=== PATIENT | female | born 1955 | race African-American/Black ===

== ENCOUNTER 2017-03-11 23:34 | Emergency (ER) | payer MEDICARE ==
[~2017-03-11] VITALS: Ht 157.5 cm; Wt 65.8 kg
[~2017-03-11 23:34] MED LIST: ALBUTEROL SULF8.5 GM INH; AMBIEN5 M1 PO; AMBIEN5 MG ORAL; AMIODARONE HCL100 MG ORAL; ASPIR-LOW81 MG PO; AZITHROMYCIN250 MG ORAL; CLINORIL PO; COLACE100 MG PO; COMBIVENT RESPIM4 GM IH; CORDARONE200 MG PO; LISINOPRIL-HCT1 EACH PO; LOSARTAN-HCTZ1 EAC1 ORAL; NITROGLYCERIN0.4 MG SL; NORCO 5/3251 TAB ORAL; PRAVASTATIN SOD10 M1 ORAL; PREVACID15 M2 ORAL; SOMA250 MG PO; SOMA350 MG PO; VICODIN 5-5001 EACH PO
[2017-03-12 00:21] VITALS: BP 120/64
[2017-03-12] MEDS ORDERED: IBUPROFEN600 MG ORAL (00:46)
[2017-03-12] MEDS ORDERED: PROMETHAZINE-C118 M1 ORAL (00:47)
[2017-03-12] MEDS ORDERED: AZITHROMYCIN250 MG ORAL (00:47)
--- NOTE | 2017-03-12 00:47 | Emergency Room Report ---
History of Present Illness General Chief Complaint: Flu Like Symptoms Source: Patient Present Illness [facility] This is a 61-year-old female with a history of A. fib. She presents with 2 days history of fever chills, cough congestion, ear pain, sore throat, chest pain. Cough is productive of yellow sputum. Pain is 8/10. Worse with swallowing. Denies any other complaint. Allergies: Coded Allergies: CEPHALEXIN (Verified Allergy, Unknown, 11/27/11) LEVOFLOXACIN (Verified Allergy, Unknown, 02/09/09) SULFA (SULFONAMIDE ANTIBIOTICS) (Verified Allergy, Unknown, 02/09/09) Patient History Past Medical History: see triage record, old chart reviewed, HTN, CAD, AFib Past Surgical History: other Pertinent Family History: none Social History: Denies: smoking Last Menstrual Period: NONE Now: No Immunizations: other Reviewed Nursing Documentation: PMH: Agreed, PSxH: Agreed Nursing Documentation-PMH Hx Cardiac Problems: Yes - AFIB Hx Hypertension: Yes Hx Diabetes: Yes Hx Cancer: No Hx Gastrointestinal Problems: No Hx Neurological Problems: No Review of Systems Eye: Reports: nose congestion, Denies: blurred vision, eye pain ENT: Reports: ear pain, nose congestion, throat swelling Respiratory: Reports: shortness of breath, Denies: cough Cardiovascular: Reports: chest pain, Denies: palpitations Gastrointestinal: Denies: abdominal pain, diarrhea, nausea, vomiting Musculoskeletal: Denies: back pain, joint pain Skin: Denies: rash Neurological: Denies: headache, numbness Endocrine: Denies: increased thirst, increased urine Hematologic/Lymphatic: Denies: easy bruising All Other Systems: negative except mentioned in HPI Physical Exam Vital Signs Date Time Temp Pulse Resp B/P Pulse Ox O2 Delivery O2 Flow Rate FiO2 03/12/17 00:03 98.4 78 20 120/64 99 Room Air vitals normal Sp02 EP Interpretation: reviewed, normal General Appearance: well appearing, no apparent distress, alert Head: normocephalic, atraumatic Eyes: bilateral eye EOMI, bilateral eye PERRL ENT: hearing grossly normal, pharyngeal erythema Neck: full range of motion, supple, no meningismus Respiratory: chest non-tender, lungs clear, normal breath sounds Cardiovascular #1: regular rate, rhythm, no murmur Gastrointestinal: normal bowel sounds, non tender, no mass, no organomegaly, no bruit, non-distended Musculoskeletal: back normal, gait/station normal, normal range of motion Neurologic: alert, oriented x3, responsive Psychiatric: mood/affect normal Skin: warm/dry Medical Decision Making Diagnostic Impression: Primary Impression: Influenza-like symptoms Additional Impression: Pharyngitis, acute Qualified Codes: J02.9 - Acute pharyngitis, unspecified ER Course Patient presents with influenza-like illness. Most likely viral. No evidence of pneumonia, meningitis, sepsis. Chest pain is atypical and related to her infectious cause. We'll discharge him. Last Vital Signs Date Time Temp Pulse Resp B/P Pulse Ox O2 Delivery O2 Flow Rate FiO2 03/12/17 00:21 78 20 Room Air 03/12/17 00:21 98.4 120/64 99 Status: improved Disposition: HOME, SELF-CARE Condition: Stable Scripts Codeine/Promethazine Hcl* (PROMETHAZINE-CODEINE SYRUP*) 118 Ml Syrup 5 ML ORAL Q6H Y for For Cough, #118 ML 0 Refills Prov: JOSE COMBS M.D. 03/12/17 Azithromycin* (ZITHROMAX*) 250 Mg Tablet 250 MG ORAL DAILY, #6 TAB 0 Refills Take two tablets by mouth today, then take one tablet by mouth daily for four days Prov: JOSE COMBS M.D. 03/12/17 Ibuprofen* (MOTRIN*) 600 Mg Tablet 600 MG ORAL THREE TIMES A DAY, #30 TAB 0 Refills Prov: JOSE COMBS M.D. 03/12/17 Additional Instructions: Followup with your DrMaria Del Rosario in 7 days. Return if symptom worsen. JOSE COMBS M.D. March 12, 2017 00:47
[2017-03-12 00:56] VITALS: BP 7/9
== END 2017-03-12 01:45 | disposition home or self-care (01) ==
LOC: EMR 03-12 01:34
DX: J11.1 Influenza due to unidentified influenza virus with other respiratory manifestations (principal); J02.9 Acute pharyngitis, unspecified; R07.9 Chest pain, unspecified; Z88.2 Allergy status to sulfonamides; Z88.8 Allergy status to other drugs, medicaments and biological substances; I48.91 Unspecified atrial fibrillation; I10 Essential (primary) hypertension; E11.9 Type 2 diabetes mellitus without complications; I25.10 Atherosclerotic heart disease of native coronary artery without angina pectoris
CPT/HCPCS: 99284

== ENCOUNTER 2019-06-22 13:47 | Inpatient (IN) | payer MEDICARE, OTHER ==
[~2019-06-22] VITALS: Ht 154.9 cm; Wt 73.9 kg
[~2019-06-22 13:47] MED LIST changes: +GLUCOSAMINE1000 M1 PO; +IBUPROFEN600 MG ORAL; +METFORMIN HCL500 M1 ORAL; +PROMETHAZINE-C118 M1 ORAL; +TYLENOL325 MG ORAL
[2019-06-22 14:00] VITALS: BP 134/73
--- NOTE | 2019-06-22 14:10 | Emergency Room Report ---
History of Present Illness General Chief Complaint: Upper Respiratory Illness Source: Patient, Medical Record Present Illness HPI The patient presents with 3 days of worsening dyspnea, chest pain and cough. She is felt feverish at home but not documented. She has dyspnea on minimal exertion with wheezes. She has been using an inhaler but has not been helping. The chest pain is bandlike across her chest. She rates this 6/10 and worse when she is coughing. She has been producing yellow phlegm without any blood. She denies any chills. She is lost her appetite. Denies any nausea, vomiting, diarrhea or dysuria. In the past she has been treated for superficial phlebitis but this is resolved. She has not tried nitroglycerin for the chest pain. She does not feel it is her heart. No sore throat, palpitations, abdominal pain, joint pain, rashes, depression, anxiety, visual changes, headache. Allergies: Coded Allergies: CEPHALEXIN (Verified Allergy, Unknown, 11/27/11) LEVOFLOXACIN (Verified Allergy, Unknown, 02/09/09) SULFA (SULFONAMIDE ANTIBIOTICS) (Verified Allergy, Unknown, 02/09/09) Patient History Past Medical History: see triage record, old chart reviewed Social History: Denies: smoking - Former Social History Narrative From home Reviewed Nursing Documentation: PMH: Agreed; PSxH: Agreed Nursing Documentation-PMH Past Medical History: No History, Except For Hx Cardiac Problems: Yes - AFIB Hx Hypertension: Yes Hx Diabetes: Yes Hx Cancer: No Hx Gastrointestinal Problems: No Hx Neurological Problems: No Review of Systems All Other Systems: negative except mentioned in HPI Physical Exam Vital Signs Date Time Temp Pulse Resp B/P (MAP) Pulse Ox O2 Delivery O2 Flow Rate FiO2 06/22/19 13:52 98.4 99 18 134/73 (93) 91 Room Air Sp02 EP Interpretation: reviewed, abnormal - Interpreted as low by me General Appearance: GCS 15, non-toxic, mild distress Head: normocephalic Eyes: bilateral eye normal inspection, bilateral eye PERRL, bilateral eye EOMI ENT: normal pharynx, moist mucus membranes Neck: supple Respiratory: respiratory distress - Minimal, wheezing, expiration, other - No rales Cardiovascular #1: regular rate, rhythm, no edema, no JVD Cardiovascular #2: 2+ radial (R) Gastrointestinal: non tender, no guarding, distended, decreased bowel sounds, overweight Genitourinary: no CVA tenderness Musculoskeletal: gait/station normal - But easily out of breath, normal range of motion, no calf tenderness Neurologic: alert, oriented x3, grossly normal Psychiatric: mood/affect normal Skin: no rash Medical Decision Making Diagnostic Impression: Primary Impression: Hypoxia Additional Impressions: Bronchospasm Chest pain Qualified Codes: R07.1 - Chest pain on breathing ER Course Patient presents with 3 days of dyspnea with wheezing and hypoxia. Differential includes pneumonia, acute myocardial infarction, COPD exacerbation , pulmonary embolus, congestive heart failure amongst others. Based on her exam there is more bronchospasm than evidence of fluid overload. Patient will be evaluated with EKG, chest x-ray and labs including blood cultures and lactate. She will be treated with IV hydration, Solu-Medrol, breathing treatments, Zofran and a small dose of morphine. Based on the hypoxia and her respiratory compromise the patient will be admitted to a telemetry bed. We need to exclude myocardial infarction. Clinically the patient does not have a pulmonary embolus. EKG with sinus rhythm rate [address]-T wave changes with left atrial enlargement. CXR COPD. Normal WBC without eosinophilia. Required second dose Albuterol. Some improved but needs hospitalization for treatment. Morphine repeated. Improved. Discussed with Dr. Espinoza on for Dr. Cooper. Laboratory Tests Test 06/22/19 14:15 06/22/19 15:10 White Blood Count 8.1 K/UL (4.8-10.8) Red Blood Count 5.38 M/UL (4.20-5.40) Hemoglobin 15.0 G/DL (12.0-16.0) Hematocrit 46.6 % (37.0-47.0) Mean Corpuscular Volume 87 FL (80-99) Mean Corpuscular Hemoglobin 27.9 PG (27.0-31.0) Mean Corpuscular Hemoglobin Concent 32.1 G/DL (32.0-36.0) Red Cell Distribution Width 12.6 % (11.6-14.8) Platelet Count 203 K/UL (150-450) Mean Platelet Volume 7.5 FL (6.5-10.1) Neutrophils (%) (Auto) 76.2 % (45.0-75.0) H Lymphocytes (%) (Auto) 14.8 % (20.0-45.0) L Monocytes (%) (Auto) 7.6 % (1.0-10.0) Eosinophils (%) (Auto) 0.7 % (0.0-3.0) Basophils (%) (Auto) 0.7 % (0.0-2.0) Prothrombin Time 10.7 SEC (9.30-11.50) Prothrombin Time INR 1.0 (0.9-1.1) PTT 28 SEC (23-33) Sodium Level 139 MMOL/L (136-145) Potassium Level 4.2 MMOL/L (3.5-5.1) Chloride Level 104 MMOL/L (98-107) Carbon Dioxide Level 27 MMOL/L (21-32) Anion Gap 8 mmol/L (5-15) Blood Urea Nitrogen 15 mg/dL (7-18) Creatinine 0.8 MG/DL (0.55-1.30) Estimate Glomerular Filtration Rate > 60 mL/min (>60) Glucose Level 183 MG/DL (74-106) H Lactic Acid Level 1.50 mmol/L (0.4-2.0) Calcium Level 9.2 MG/DL (8.5-10.1) Total Bilirubin 0.3 MG/DL (0.2-1.0) Aspartate Amino Transferase (AST) 19 U/L (15-37) Alanine Aminotransferase (ALT) 19 U/L (12-78) Alkaline Phosphatase 89 U/L (46-116) Total Creatine Kinase 213 U/L (26-308) Troponin I 0.000 ng/mL (0.000-0.056) Pro-B-Type Natriuretic Peptide 33 pg/mL (0-125) Total Protein 7.2 G/DL (6.4-8.2) Albumin 3.6 G/DL (3.4-5.0) Globulin 3.6 g/dL Albumin/Globulin Ratio 1.0 (1.0-2.7) Lipase 154 U/L (73-393) Urine Color Yellow Urine Appearance Clear Urine pH 6.5 (4.5-8.0) Urine Specific [place] 1.015 (1.005-1.035) Urine Protein 1+ (NEGATIVE) H Urine Glucose (UA) Negative (NEGATIVE) Urine Ketones 1+ (NEGATIVE) H Urine Blood Negative (NEGATIVE) Urine Nitrite Negative (NEGATIVE) Urine Bilirubin Negative (NEGATIVE) Urine Urobilinogen 1 MG/DL (0.0-1.0) H Urine Leukocyte Esterase Negative (NEGATIVE) Urine RBC 0 /HPF (0 - 2) Urine WBC 0-2 /HPF (0 - 2) Urine Squamous Epithelial Cells Many /LPF (NONE/OCC) H Urine Amorphous Sediment Moderate /LPF (NONE) H Urine Bacteria Few /HPF (NONE) Urine Mucus Few /LPF (NONE/OCC) H EKG Diagnostic Results Rate: normal Rhythm: NSR ST Segments: no acute changes Rhythm Strip Diag. Results EP Interpretation: yes Rhythm: NSR, no PVC's, no ectopy Chest X-Ray Diagnostic Results Chest X-Ray Diagnostic Results : Chest X-Ray Ordered: Yes # of Views/Limited/Complete: 1 View Indication: Other EP Interpretation: Yes Interpretation: no consolidation, no effusion, no pneumothorax, other - COPD no infiltrate Impression: Other Electronically Signed by: Electronically signed by Kian Kumari MD Last Vital Signs Date Time Temp Pulse Resp B/P (MAP) Pulse Ox O2 Delivery O2 Flow Rate FiO2 06/22/19 20:00 97.4 89 18 151/71 (97) 98 06/22/19 19:44 Nasal Cannula 2.0 28 Status: improved Disposition: ADMITTED INPATIENT Condition: Serious Kian Kumari MD Jun 22, 2019 14:10
[2019-06-22] MEDS ORDERED: Morphine Sulfate 2mg/ml Inj(IV/IM USE ONLY) IVP ONE (14:15)
[2019-06-22] MEDS ORDERED: Ipratropium 0.02% Inh Soln 2.5ml UD HHN ONE (14:15)
[2019-06-22] MEDS ORDERED: Albuterol ud Inhalation HHN ONE ×2 (14:15→15:15)
[2019-06-22] MEDS ORDERED: Solu-MEDROL 125mg Inj IVP ONE (14:15)
[2019-06-22 14:37] LABS: BASOPHILS % (AUTO) 0.7 % (0.0-2.0); EOSINOPHILS % (AUTO) 0.7 % (0.0-3.0); HEMATOCRIT 46.6 % (37.0-47.0); LYMPHOCYTES % (AUTO) 14.8 % (20.0-45.0); MEAN CORPUSCULAR VOLUME 87 FL (80-99); MONOCYTES % (AUTO) 7.6 % (1.0-10.0); NEUTROPHILS % (AUTO) 76.2 % (45.0-75.0); PLATELET COUNT 203 K/UL (150-450); RED BLOOD COUNT 5.38 M/UL (4.20-5.40); RED CELL DISTRIBUTION WIDTH 12.6 % (11.6-14.8); WHITE BLOOD COUNT 8.1 K/UL (4.8-10.8)
[2019-06-22 14:45] LABS: ANION GAP 8 mmol/L (5-15); BLOOD UREA NITROGEN 15 mg/dL (7-18); CALCIUM 9.2 MG/DL (8.5-10.1); CARBON DIOXIDE 27 MMOL/L (21-32); CHLORIDE 104 MMOL/L (98-107); CREATININE 0.8 MG/DL (0.55-1.30); POTASSIUM 4.2 MMOL/L (3.5-5.1); SODIUM 139 MMOL/L (136-145)
[2019-06-22 14:56] LABS: ALANINE AMINOTRANSFERASE 19 U/L (12-78); ALBUMIN 3.6 G/DL (3.4-5.0); ALKALINE PHOSPHATASE 89 U/L (46-116); ASPARTATE AMINO TRANSFERASE 19 U/L (15-37); BILIRUBIN,TOTAL 0.3 MG/DL (0.2-1.0); CREATINE KINASE 213 U/L (26-308)
--- NOTE | 2019-06-22 14:58 | Diagnostic Imaging Report ---
Indication: Cough Comparison: 10/19/2014 A single view chest radiograph was obtained. Findings: No definite infiltrate or pulmonary vascular congestion identified. The heart is enlarged. The aorta is mildly enlarged consistent with atherosclerotic vascular disease. The bones are osteopenic. Impression: No acute disease
[2019-06-22 15:39] LABS: APPEARANCE,URINE CLEAR; BILIRUBIN, URINE NEGATIVE (NEGATIVE); GLUCOSE, URINE (UA) NEGATIVE (NEGATIVE); KETONES,URINE 1+ (NEGATIVE); LEUKOCYTE ESTERASE ,URINE NEGATIVE (NEGATIVE); NITRITE,URINE NEGATIVE (NEGATIVE); PH,URINE 6.5 (4.5-8.0); PROTEIN,URINE 1+ (NEGATIVE); UROBILINOGEN,URINE 1 MG/DL (0.0-1.0)
[2019-06-22 15:41] LABS: COLOR,URINE YELLOW
[2019-06-22] MEDS ORDERED: LORazepam Inj 2mg/ml 1ml IV PRN (16:00)
[2019-06-22] MEDS ORDERED: Zolpidem 5mg tab ORAL PRN (16:00)
[2019-06-22] MEDS ORDERED: Morphine Sulfate 4mg/ml Inj (IV USE ONLY) IVP PRN (16:00)
[2019-06-22] MEDS ORDERED: Nitroglycerin Subl 0.4mg tab SL PRN (16:00)
[2019-06-22] MEDS ORDERED: Morphine Sulfate 2mg/ml Inj(IV/IM USE ONLY) IVP PRN (16:00)
[2019-06-22] MEDS ORDERED: Morphine Sulfate 4mg/ml Inj (IV USE ONLY) IVP ONE (16:15)
[2019-06-22 16:22] VITALS: BP 119/52
[2019-06-22] MEDS ORDERED: Albuterol ud Inhalation HHN PRN (16:45)
--- NOTE | 2019-06-22 16:56 | History and Physical ---
History of Present Illness General Date patient seen: Jun 22, 2019 Time patient seen: 15:30 Reason for Hospitalization: Upper Respiratory Illness Present Illness HPI 64 y/o F with h/o borderline DM on Metformin, prior arrhythmias on Amiodarone, insomnia and chronic smoker who comes to the ED for evaluation of shortness of breath and bronchospasm. She reports having cough for the past 3 days with sputum production ( Yellow ), denies fever or chills, no hemotptysis. Denies sick contacts and she smokes intermittently and not every day. Reports changing PCP to Dr. Mark and seeing him for first evaluation approximately 6 weeks ago. She uses ambien 10 mg for chronic insomnia. 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 Crawford who started the Amiodarone about 2 years ago. In the ED, she was given Albuterol, Solumedrol and oxygen. CXR EKG labs and course reviewed. Allergies: Coded Allergies: CEPHALEXIN (Verified Allergy, Unknown, 11/27/11) LEVOFLOXACIN (Verified Allergy, Unknown, 02/09/09) SULFA (SULFONAMIDE ANTIBIOTICS) (Verified Allergy, Unknown, 02/09/09) Medication History Scheduled Amiodarone Hcl* (Cordarone*), 200 MG PO Q12H, (Reported) Aspirin* (Aspir-Low*), 81 MG PO DAILY, (Reported) Lansoprazole* (Prevacid*), 15 MG ORAL DAILY, (Reported) Losartan/Hydrochlorothiazide (Losartan-Hctz 100-25 Mg Tab), 1 TAB ORAL DAILY, ( Reported) Metformin Hcl* (Metformin Hcl*), 500 MG ORAL TWICE A DAY, (Reported) Pravastatin Sod (Pravastatin Sod), 10 MG ORAL BEDTIME, (Reported) Scheduled PRN Acetaminophen (Tylenol), 650 MG ORAL Q6H PRN for Prn Pain/Headache/Temp > 101 Nitroglycerin (Nitroglycerin), 0.4 MG SL Q4HR PRN for For Pain Zolpidem Tartrate* (Ambien*), 5 MG ORAL BEDTIME PRN for Insomnia, (Reported) Miscellaneous Medications Glucosamine Sulfate 2KCL (Glucosamine), 1,000 MG PO, (Reported) Patient History Healthcare decision maker Resuscitation status Advanced Directive on File Review of Systems Constitutional: Reports: see HPI Respiratory: Reports: cough, shortness of breath, wheezing, sputum Cardiovascular: Reports: no symptoms Gastrointestinal: Reports: no symptoms Genitourinary: Reports: no symptoms All Other Systems: negative except mentioned in HPI Physical Exam General Appearance: WD/WN Lines, tubes and drains: peripheral HEENT: normocephalic, atraumatic Neck: non-tender, normal alignment Respiratory/Chest: chest wall non-tender Cardiovascular/Chest: normal rate Abdomen: non tender 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 Last 24 Hour Vital Signs Date Time Temp Pulse Resp B/P (MAP) Pulse Ox O2 Delivery O2 Flow Rate FiO2 06/22/19 16:22 98 21 119/52 95 Room Air 06/22/19 15:54 82 12 99 Nasal Cannula 2.0 28 91 22 95 06/22/19 14:56 98.4 06/22/19 14:00 98.4 99 18 134/73 98 Room Air 06/22/19 14:00 99 28 93 Nasal Cannula 2.0 28 97 19 96 06/22/19 14:00 99 18 Room Air 06/22/19 13:52 98.4 99 18 134/73 (93) 98 Room Air Laboratory Tests Test 06/22/19 14:15 06/22/19 15:10 White Blood Count 8.1 K/UL (4.8-10.8) Red Blood Count 5.38 M/UL (4.20-5.40) Hemoglobin 15.0 G/DL (12.0-16.0) Hematocrit 46.6 % (37.0-47.0) Mean Corpuscular Volume 87 FL (80-99) Mean Corpuscular Hemoglobin 27.9 PG (27.0-31.0) Mean Corpuscular Hemoglobin Concent 32.1 G/DL (32.0-36.0) Red Cell Distribution Width 12.6 % (11.6-14.8) Platelet Count 203 K/UL (150-450) Mean Platelet Volume 7.5 FL (6.5-10.1) Neutrophils (%) (Auto) 76.2 % (45.0-75.0) H Lymphocytes (%) (Auto) 14.8 % (20.0-45.0) L Monocytes (%) (Auto) 7.6 % (1.0-10.0) Eosinophils (%) (Auto) 0.7 % (0.0-3.0) Basophils (%) (Auto) 0.7 % (0.0-2.0) Prothrombin Time 10.7 SEC (9.30-11.50) Prothromb Time International Ratio 1.0 (0.9-1.1) Activated Partial Thromboplast Time 28 SEC (23-33) Sodium Level 139 MMOL/L (136-145) Potassium Level 4.2 MMOL/L (3.5-5.1) Chloride Level 104 MMOL/L (98-107) Carbon Dioxide Level 27 MMOL/L (21-32) Anion Gap 8 mmol/L (5-15) Blood Urea Nitrogen 15 mg/dL (7-18) Creatinine 0.8 MG/DL (0.55-1.30) Estimat Glomerular Filtration Rate > 60 mL/min (>60) Glucose Level 183 MG/DL (74-106) H Lactic Acid Level 1.50 mmol/L (0.4-2.0) Calcium Level 9.2 MG/DL (8.5-10.1) Total Bilirubin 0.3 MG/DL (0.2-1.0) Aspartate Amino Transf (AST/SGOT) 19 U/L (15-37) Alanine Aminotransferase (ALT/SGPT) 19 U/L (12-78) Alkaline Phosphatase 89 U/L (46-116) Total Creatine Kinase 213 U/L (26-308) Troponin I 0.000 ng/mL (0.000-0.056) Pro-B-Type Natriuretic Peptide 33 pg/mL (0-125) Total Protein 7.2 G/DL (6.4-8.2) Albumin 3.6 G/DL (3.4-5.0) Globulin 3.6 g/dL Albumin/Globulin Ratio 1.0 (1.0-2.7) Lipase 154 U/L (73-393) Urine Color Yellow Urine Appearance Clear Urine pH 6.5 (4.5-8.0) Urine Specific [place] 1.015 (1.005-1.035) Urine Protein 1+ (NEGATIVE) H Urine Glucose (UA) Negative (NEGATIVE) Urine Ketones 1+ (NEGATIVE) H Urine Blood Negative (NEGATIVE) Urine Nitrite Negative (NEGATIVE) Urine Bilirubin Negative (NEGATIVE) Urine Urobilinogen 1 MG/DL (0.0-1.0) H Urine Leukocyte Esterase Negative (NEGATIVE) Urine RBC 0 /HPF (0 - 2) Urine WBC 0-2 /HPF (0 - 2) Urine Squamous Epithelial Cells Many /LPF (NONE/OCC) H Urine Amorphous Sediment Moderate /LPF (NONE) H Urine Bacteria Few /HPF (NONE) Urine Mucus Few /LPF (NONE/OCC) H Height (Feet): 5 Height (Inches): 2.00 Weight (Pounds): 165 Medications Current Medications Medications (Trade) Dose Ordered Sig/Aide Route PRN Reason Start Time Stop Time Status Last Admin Dose Admin Aspirin (Ecotrin) 81 mg DAILY ORAL 06/23/19 09:00 07/23/19 08:59 Dextrose (Dextrose 50%) 25 ml Q30M PRN IV Hypoglycemia 06/22/19 16:00 07/22/19 15:59 Dextrose (Dextrose 50%) 50 ml Q30M PRN IV Hypoglycemia 06/22/19 16:00 07/22/19 15:59 Enoxaparin Sodium (Lovenox) 40 mg QHS SUBQ 06/22/19 21:00 07/22/19 20:59 Famotidine (Pepcid) 40 mg DAILY ORAL 06/23/19 09:00 07/23/19 08:59 Lorazepam (Ativan 2mg/ml 1ml) 0.5 mg Q4H PRN IV For Anxiety 06/22/19 16:00 06/29/19 15:59 Morphine Sulfate (Morphine Sulfate) 2 mg Q4H PRN IVP Moderate Pain (Pain Scale 4-6) 06/22/19 16:00 06/29/19 15:59 Morphine Sulfate (Morphine Sulfate) 4 mg Q4H PRN IVP Severe Pain (Pain Scale 7-10) 06/22/19 16:00 06/29/19 15:59 Nitroglycerin (Ntg) 0.4 mg Q5M PRN SL CHESTPAIN 06/22/19 16:00 07/22/19 15:59 Ondansetron HCl (Zofran) 4 mg Q6H PRN IVP Nausea & Vomiting 06/22/19 16:00 07/22/19 15:59 Pravastatin Sodium (Pravachol) 10 mg BEDTIME ORAL 06/22/19 21:00 07/22/19 20:59 Sodium Chloride 1,000 ml @ 300 mls/hr Q3H20M IV 06/22/19 14:15 07/22/19 14:14 06/22/19 16:28 Zolpidem Tartrate (Ambien) 5 mg BEDTIME PRN ORAL Insomnia 06/22/19 16:00 06/29/19 15:59 Assessment/Plan Status: doing well Assessment/Plan: 64 y/o F admitted to the Hospital with acute shortness of breath and bronchospasm. # COPD vs acute asthma exacerbation Clinically there is bronchospasm by ausculation. Will continue solumedrol 40 mg q 8hr, HHN with duoneb q 6 hours and PRN q 4 hrs Oxygen as needed # History of Arrhythmia Cont Amiodarone therapy Add TSH level Tele as needed. #Borderline diabetes mellitus Hold metformin during the hospital stay SIEN[place] and monitor glucose # Activity As tolerated. #DVT ppx pending activity level # GI ppx FULL CODE Rosalba Espinoza MD Jun 22, 2019 16:56
[2019-06-22 17:25] VITALS: BP 129/62
[2019-06-22 18:19] VITALS: BP 134/68
[2019-06-22] MEDS: Albuterol/Ipratropium 3ml neb HHN SCH (19:34)
[2019-06-22 20:00] VITALS: BP 151/71
[2019-06-22] MEDS: Solu-MEDROL 40mg Inj IVP SCH (22:14)
[2019-06-22] MEDS: Zolpidem 5mg tab ORAL SCH (22:15)
[2019-06-22] MEDS: Enoxaparin 40mg Inj SUBQ SCH (22:17)
[2019-06-23] VITALS: BP 136/59
[2019-06-23] MEDS: Albuterol/Ipratropium 3ml neb HHN SCH ×4 (01:19→19:59)
[2019-06-23 04:00] VITALS: BP 109/80
[2019-06-23] MEDS: Solu-MEDROL 40mg Inj IVP SCH ×3 (05:56→21:43)
[2019-06-23] MEDS: NovoLOG Insulin Flexpen SUBQ SCH ×4 (06:30→21:48)
[2019-06-23 07:35] LABS: HEMATOCRIT 42.7 % (37.0-47.0); HEMOGLOBIN 13.6 G/DL (12.0-16.0); MEAN CORPUSCULAR VOLUME 88 FL (80-99); PLATELET COUNT 195 K/UL (150-450); RED BLOOD COUNT 4.88 M/UL (4.20-5.40); RED CELL DISTRIBUTION WIDTH 12.3 % (11.6-14.8)
[2019-06-23 07:57] LABS: ANION GAP 9 mmol/L (5-15); BLOOD UREA NITROGEN 19 mg/dL (7-18); CALCIUM 9.2 MG/DL (8.5-10.1); CARBON DIOXIDE 26 MMOL/L (21-32); CHLORIDE 102 MMOL/L (98-107); CREATININE 0.9 MG/DL (0.55-1.30); POTASSIUM 4.5 MMOL/L (3.5-5.1); SODIUM 137 MMOL/L (136-145)
[2019-06-23 08:00] VITALS: BP 144/89
[2019-06-23] MEDS: Aspirin EC 81mg tab ORAL SCH (08:52)
[2019-06-23] MEDS: Amiodarone 200mg tab ORAL SCH (08:53)
[2019-06-23] MEDS: guaiFENesin w/Codeine 5ml Liq ud ORAL PRN ×2 (11:15→17:12)
[2019-06-23] MEDS: metFORMIN 500mg tab ORAL SCH ×2 (11:15→17:12)
[2019-06-23 12:00] VITALS: BP 122/53
[2019-06-23] MEDS: Hyzaar 12.5mg/50mg tab ORAL SCH (12:04)
[2019-06-23 16:00] VITALS: BP 115/87
[2019-06-23] MEDS ORDERED: cefTRIAXone 1 GM in D5W 55 ML IVPB SCH ×2 (16:00→22:00)
--- NOTE | 2019-06-23 19:00 | Consultation ---
DATE OF CONSULTATION: 06/23/2019 PULMONARY CONSULTATION HISTORY OF PRESENT ILLNESS: This is a 64-year-old female, who is a well established patient in my office. She has a history of diabetes mellitus, cardiac arrhythmias, and COPD. She came to the hospital with shortness of breath. She states she is having cough with phlegm production. She denied any fever. She said her throat was sore and she had chest discomfort. She is an active smoker. HOME MEDICATIONS: Include amiodarone, aspirin, Prevacid, losartan, metformin, and lansoprazole. ALLERGIES: Keflex, Levaquin, and sulfa. REVIEW OF SYSTEMS: Denies any headaches, hematemesis, melena, hematochezia, night sweats, or weight loss. PHYSICAL EXAMINATION: GENERAL: Reveals a 64-year-old female. VITAL SIGNS: Blood pressure is 109/80, heart rate is 84, respirations are 20. She is afebrile. O2 saturation 99% on 2 L of oxygen. HEENT: Unremarkable. CHEST: Clear breath sounds bilaterally at this time with normal heart sounds. ABDOMEN: Soft. EXTREMITIES: There is no edema. LABORATORY DATA: Lab testing shows white count 11,000, otherwise normal CBC and BMP. Creatinine is 0.9. Glucose 225. Blood culture is negative so far. IMAGING STUDIES: X-ray of the chest was obtained yesterday, which shows clear lung boyer bilaterally. IMPRESSION: 1. Exacerbation of COPD. 2. Cardiac arrhythmias. 3. Diabetes mellitus. 4. Hypertension. 5. Hyperlipidemia. DISCUSSION: 1. Admit to the hospital. 2. Continue steroids and breathing treatments. 3. Hold off on antibiotics. 4. Continue home medications. 5. I will resume metformin. 6. I will add Robitussin with codeine for her symptoms. 7. 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 Omar Mark M.D. DR: MARCIO JOB#: [id number] CC:
--- NOTE | 2019-06-23 19:10 | General Progress Note ---
Assessment/Plan Problem List: (1) medication non-compliance Status: doing well Assessment/Plan: 64-year-old female wuth history of diabetes mellitus,cardiac arrhythmias, and COPD. She has had fevers and greenish phlegm at home. Admitted for COPD exacerbation. Assessment: 1. Exacerbation of COPD. 2. Cardiac arrhythmias. 3. Diabetes mellitus. 4. Hypertension. 5. Hyperlipidemia. 6. Gram postive cocci in clusters from both bottles of blood cultures- likely contaminant Plan: Continue steroids and breathing treatments. Taper methylpred as she progresses. Pulmonary consult appreciated Azithromycin. Hold off on ceftriaxone per pulmonary Repeat blood cultures Continue home medications. including amiodarone. Follow up TSK levels Continue metformin. Add insulin while on methylpred Activity as tolerated. DVT ppx pending activity level GI ppx FULL CODE Time of this note may not reflect the time of patient encounter. I spent 40 minutes on this encounter. Greater than 50% spent on counselling and care coordination Subjective Date patient seen: Jun 23, 2019 ROS Limited/Unobtainable: No Constitutional: Reports: fever HEENT: Denies: no symptoms, eye pain, blurred vision, tearing, double vision, ear pain, ear discharge, nose pain, nose congestion, throat pain, throat swelling, mouth pain, mouth swelling, other Cardiovascular: Denies: no symptoms, chest pain, edema, irregular heart rate, lightheadedness, palpitations, syncope, other Respiratory: Reports: no symptoms, cough - cough , orthopnea, shortness of breath, SOB with excertion, SOB at rest, sputum, stridor, wheezing, other Allergies: Coded Allergies: CEPHALEXIN (Verified Allergy, Unknown, 11/27/11) LEVOFLOXACIN (Verified Allergy, Unknown, 02/09/09) SULFA (SULFONAMIDE ANTIBIOTICS) (Verified Allergy, Unknown, 02/09/09) Subjective Doing much better. Breathing has improved. Says uses Symbicort only as needed at home. Emphasized this medication is standing medication not as needed. Objective Last 24 Hour Vital Signs Date Time Temp Pulse Resp B/P (MAP) Pulse Ox O2 Delivery O2 Flow Rate FiO2 06/23/19 16:00 97.9 83 18 115/87 (96) 99 06/23/19 16:00 73 06/23/19 13:29 85 20 99 Nasal Cannula 2.0 28 83 20 96 06/23/19 12:04 144/89 06/23/19 12:00 97.7 84 22 122/53 (76) 97 06/23/19 12:00 78 06/23/19 09:00 Room Air 06/23/19 08:05 89 20 99 Nasal Cannula 2.0 28 87 20 95 06/23/19 08:00 95 Nasal Cannula 2.0 28 06/23/19 08:00 97.4 84 21 144/89 (107) 96 06/23/19 08:00 75 06/23/19 04:00 80 06/23/19 04:00 97.4 83 19 109/80 (90) 94 06/23/19 01:29 105 18 99 Nasal Cannula 2.0 28 106 18 97 06/23/19 00:00 102 06/23/19 00:00 97.2 98 19 136/59 (84) 98 06/22/19 21:00 Room Air 06/22/19 20:00 97 06/22/19 20:00 97.4 89 18 151/71 (97) 98 06/22/19 19:44 96 20 98 Nasal Cannula 2.0 28 94 22 94 06/22/19 19:33 94 Nasal Cannula 2.0 28 Intake and Output 06/22/19 06/23/19 19:00 07:00 Intake Total 600 ml Balance 600 ml IV Total 600 ml # Voids 2 Laboratory Tests 06/23/19 05:27: White Blood Count 11.0H, Red Blood Count 4.88, Hemoglobin 13.6, Hematocrit 42.7 , Mean Corpuscular Volume 88, Mean Corpuscular Hemoglobin 28.0, Mean Corpuscular Hemoglobin Concent 31.9L, Red Cell Distribution Width 12.3, Platelet Count 195, Mean Platelet Volume 6.7, Neutrophils (%) (Auto) , Lymphocytes (%) (Auto) , Monocytes (%) (Auto) , Eosinophils (%) (Auto) , Basophils (%) (Auto) , Differential Total Cells Counted 100, Neutrophils % ( Manual) 93H, Lymphocytes % (Manual) 6L, Monocytes % (Manual) 1, Eosinophils % ( Manual) 0, Basophils % (Manual) 0, Band Neutrophils 0, Platelet Estimate Adequate, Platelet Morphology Normal, Red Blood Cell Morphology Normal, Sodium Level 137, Potassium Level 4.5, Chloride Level 102, Carbon Dioxide Level 26, Anion Gap 9, Blood Urea Nitrogen 19H, Creatinine 0.9, Estimat Glomerular Filtration Rate > 60, Glucose Level 225H, Calcium Level 9.2 Height (Feet): 5 Height (Inches): 1.00 Weight (Pounds): 163 General Appearance: WD/WN EENT: PERRL/EOMI, normal ENT inspection Neck: non-tender Cardiovascular: normal rate, regular rhythm Respiratory/Chest: lungs clear Abdomen: normal bowel sounds, non tender Extremities: normal range of motion, non-tender 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 Jun 23, 2019 19:10
[2019-06-23 20:00] VITALS: BP 125/55
[2019-06-23] MEDS ORDERED: HYDROcodone/Acetamin 5/325 tab ORAL PRN (21:00)
[2019-06-23] MEDS: Zolpidem 5mg tab ORAL SCH (21:42)
[2019-06-23] MEDS: Azithromycin 250mg tab ORAL SCH (21:43)
[2019-06-23] MEDS: Enoxaparin 40mg Inj SUBQ SCH (21:47)
[2019-06-24] VITALS: BP 126/69
[2019-06-24] MEDS: Albuterol/Ipratropium 3ml neb HHN SCH ×4 (01:12→20:19)
[2019-06-24 04:00] VITALS: BP 119/59
[2019-06-24] MEDS: metFORMIN 500mg tab ORAL SCH ×3 (06:37→17:39)
[2019-06-24] MEDS: Solu-MEDROL 40mg Inj IVP SCH ×3 (06:38→20:33)
[2019-06-24] MEDS: NovoLOG Insulin Flexpen SUBQ SCH ×4 (06:39→20:44)
[2019-06-24 08:00] VITALS: BP 112/46
--- NOTE | 2019-06-24 09:34 | Pulmonology Progress Note ---
Assessment/Plan Assessment/Plan IMPRESSION: 1. Exacerbation of COPD. 2. Cardiac arrhythmias. 3. Diabetes mellitus. 4. Hypertension. 5. Hyperlipidemia. DISCUSSION: 1. Admit to the hospital. 2. Continue steroids and breathing treatments. 3. Will add azithromycin 4. Continue home medications. 5. Continue metformin. 6. Continue Robitussin with codeine for her symptoms. 7. 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 Omar Mark M.D. Subjective Interval Events: Coughing up discolred phlegm. Constitutional: Reports: no symptoms HEENT: Repors: no symptoms Respiratory: Reports: no symptoms Cardiovascular: Reports: no symptoms Gastrointestinal/Abdominal: Reports: no symptoms Allergies: Coded Allergies: CEPHALEXIN (Verified Allergy, Unknown, 11/27/11) LEVOFLOXACIN (Verified Allergy, Unknown, 02/09/09) SULFA (SULFONAMIDE ANTIBIOTICS) (Verified Allergy, Unknown, 02/09/09) Objective Last 24 Hour Vital Signs Date Time Temp Pulse Resp B/P (MAP) Pulse Ox O2 Delivery O2 Flow Rate FiO2 06/24/19 08:00 97.5 73 18 112/46 (68) 97 06/24/19 06:50 96 Nasal Cannula 2.0 28 06/24/19 06:50 88 20 99 Nasal Cannula 2.0 28 70 18 96 06/24/19 04:00 92 06/24/19 04:00 98.6 100 18 119/59 (79) 98 06/24/19 01:12 93 20 98 Nasal Cannula 2.0 28 94 20 95 06/24/19 00:00 113 06/24/19 00:00 98.6 99 18 126/69 (88) 96 06/23/19 22:15 97.9 06/23/19 22:05 98 20 99 Nasal Cannula 2.0 96 20 95 06/23/19 21:00 Room Air 06/23/19 20:00 79 06/23/19 20:00 98.2 99 18 125/55 (78) 100 06/23/19 19:59 84 20 99 Nasal Cannula 2.0 28 83 20 95 06/23/19 19:59 95 Nasal Cannula 2.0 28 06/23/19 16:00 97.9 83 18 115/87 (96) 99 06/23/19 16:00 73 06/23/19 13:29 85 20 99 Nasal Cannula 2.0 28 83 20 96 06/23/19 12:04 144/89 06/23/19 12:00 97.7 84 22 122/53 (76) 97 06/23/19 12:00 78 Intake and Output 06/23/19 06/24/19 19:00 07:00 Intake Total 720 ml Balance 720 ml Intake Oral 720 ml # Voids 3 3 General Appearance: no acute distress HEENT: normocephalic Respiratory/Chest: chest wall non-tender, decreased breath sounds, rhonchi Cardiovascular: normal peripheral pulses, normal rate Abdomen: normal bowel sounds Microbiology Date/Time Source Procedure Growth Status 06/22/19 14:20 Blood Blood Culture - Preliminary Staphylococcus Species Resulted 06/22/19 14:05 Blood Blood Culture - Preliminary Staphylococcus Species Resulted Current Medications Medications (Trade) Dose Ordered Sig/Aide Route PRN Reason Start Time Stop Time Status Last Admin Dose Admin Acetaminophen/ Hydrocodone Bitart ([place] 5/325) 1 tab Q6H PRN ORAL For Pain 06/23/19 21:00 06/30/19 20:59 06/23/19 21:43 Albuterol Sulfate (Proventil) 2.5 mg Q4H PRN HHN Shortness of Breath 06/22/19 16:45 06/27/19 16:44 06/23/19 22:05 Albuterol/ Ipratropium (Albuterol/ Ipratropium) 3 ml Q6HRT HHN 06/22/19 19:00 06/27/19 18:59 06/24/19 06:49 Amiodarone HCl (Cordarone) 100 mg DAILY ORAL 06/23/19 09:00 07/23/19 08:59 06/23/19 08:53 Aspirin (Ecotrin) 81 mg DAILY ORAL 06/23/19 09:00 07/23/19 08:59 06/23/19 08:52 Azithromycin (Zithromax) 500 mg DAILY ORAL 06/23/19 21:00 06/30/19 20:59 06/23/19 21:43 Dextrose (Dextrose 50%) 25 ml Q30M PRN IV Hypoglycemia 06/22/19 16:00 07/22/19 15:59 Dextrose (Dextrose 50%) 50 ml Q30M PRN IV Hypoglycemia 06/22/19 16:00 07/22/19 15:59 Enoxaparin Sodium (Lovenox) 40 mg QHS SUBQ 06/22/19 21:00 07/22/19 20:59 06/23/19 21:47 Famotidine (Pepcid) 40 mg DAILY ORAL 06/23/19 09:00 07/23/19 08:59 06/23/19 08:53 Guaifenesin/ Codeine Phosphate (Robitussin with codeine) 5 ml Q6H PRN ORAL For Cough 06/23/19 10:15 07/23/19 10:14 06/23/19 17:12 HCTZ/Losartan Potassium (Hyzaar 50-12.5) 1 tab DAILY ORAL 06/23/19 11:30 07/23/19 11:29 06/23/19 12:04 Insulin Aspart (NovoLOG) BEFORE MEALS AND HS SUBQ 06/23/19 06:30 07/23/19 06:29 06/24/19 06:39 Lorazepam (Ativan 2mg/ml 1ml) 0.5 mg Q4H PRN IV For Anxiety 06/22/19 16:00 06/29/19 15:59 Metformin HCl (Glucophage) 500 mg TIAC ORAL 06/23/19 11:30 07/23/19 11:29 06/24/19 06:37 Methylprednisolone Sodium Succinate (Solu-MEDROL) 40 mg EVERY 8 HOURS IVP 06/22/19 22:00 07/22/19 21:59 06/24/19 06:38 Morphine Sulfate (Morphine Sulfate) 2 mg Q4H PRN IVP Moderate Pain (Pain Scale 4-6) 06/22/19 16:00 06/29/19 15:59 Morphine Sulfate (Morphine Sulfate) 4 mg Q4H PRN IVP Severe Pain (Pain Scale 7-10) 06/22/19 16:00 06/29/19 15:59 Nitroglycerin (Ntg) 0.4 mg Q5M PRN SL CHESTPAIN 06/22/19 16:00 07/22/19 15:59 Ondansetron HCl (Zofran) 4 mg Q6H PRN IVP Nausea & Vomiting 8/30/19 16:00 07/22/19 15:59 Pravastatin Sodium (Pravachol) 10 mg BEDTIME ORAL 06/22/19 21:00 07/22/19 20:59 06/23/19 21:43 Zolpidem Tartrate (Ambien) 10 mg BEDTIME ORAL 06/22/19 21:00 06/29/19 20:59 06/23/19 21:42 Omar Mark MD Jun 24, 2019 09:34
[2019-06-24] MEDS ORDERED: Azithromycin 250mg tab ORAL SCH (09:45)
[2019-06-24] MEDS: Aspirin EC 81mg tab ORAL SCH (10:31)
[2019-06-24] MEDS: Amiodarone 200mg tab ORAL SCH (10:31)
[2019-06-24] MEDS: Hyzaar 12.5mg/50mg tab ORAL SCH (10:36)
[2019-06-24] MEDS: Azithromycin 250mg tab ORAL SCH (10:36)
[2019-06-24 12:00] VITALS: BP 106/80
--- NOTE | 2019-06-24 15:34 | General Progress Note ---
Assessment/Plan Problem List: (1) medication non-compliance Status: doing well Assessment/Plan: 64-year-old female wuth history of diabetes mellitus,cardiac arrhythmias, and COPD. She has had fevers and greenish phlegm at home. Admitted for COPD exacerbation. Assessment: 1. Acute exacerbation of COPD. 2. Cardiac arrhythmias. 3. Diabetes mellitus. 4. Hypertension. 5. Hyperlipidemia. 6. Gram postive cocci in clusters from both bottles of blood cultures- likely contaminant Plan: Continue steroids and breathing treatments. Taper methylpred as she progresses. Pulmonary consult appreciated IV Azithromycin. Hold off on ceftriaxone per pulmonary Repeat blood cultures sent. Will give one dose of IV vancomycin 1.5g Continue home medications. including amiodarone. Follow up TSK levels Continue metformin. Add insulin while on methylpred Activity as tolerated. DVT ppx pending activity level GI ppx FULL CODE Time of this note may not reflect the time of patient encounter. I spent 40 minutes on this encounter. Greater than 50% spent on counselling and care coordination Subjective Date patient seen: Jun 24, 2019 ROS Limited/Unobtainable: No Constitutional: Reports: no symptoms, chills, diaphoresis, fever, malaise, weakness, other HEENT: Reports: no symptoms, eye pain, blurred vision; Denies: tearing, double vision, ear pain, ear discharge, nose pain, nose congestion, throat pain, throat swelling, mouth pain, mouth swelling, other Cardiovascular: Reports: chest pain, palpitations; Denies: no symptoms, edema, irregular heart rate, lightheadedness, syncope, other Respiratory: Reports: no symptoms, cough, orthopnea, shortness of breath, SOB with excertion, SOB at rest, sputum, stridor, wheezing, other Gastrointestinal/Abdominal: Reports: abdominal pain; Denies: no symptoms, abdomen distended, black stools, tarry stools, blood in stool, constipated, diarrhea, difficulty swallowing, nausea, poor appetite, poor fluid intake, rectal bleeding, vomiting, other Genitourinary: Denies: no symptoms, burning, discharge, frequency, flank pain, hematuria, incontinence, pain, urgency, other Neurologic/Psychiatric: Denies: no symptoms, anxiety, depressed, emotional problems, headache, numbness, paresthesia, pre-existing deficit, seizure, tingling, tremors, weakness, other Endocrine: Denies: no symptoms, excessive sweating, flushing, intolerance to cold, intolerance to heat, increased hunger, increased thirst, increased urine, unexplained weight gain, unexplained weight loss, other Hematologic/Lymphatic: Denies: no symptoms, anemia, easy bleeding, easy bruising, other Allergies: Coded Allergies: CEPHALEXIN (Verified Allergy, Unknown, 11/27/11) LEVOFLOXACIN (Verified Allergy, Unknown, 02/09/09) SULFA (SULFONAMIDE ANTIBIOTICS) (Verified Allergy, Unknown, 02/09/09) All Systems: reviewed and negative except above Subjective Doing much better. cough better. breathing better Objective Last 24 Hour Vital Signs Date Time Temp Pulse Resp B/P (MAP) Pulse Ox O2 Delivery O2 Flow Rate FiO2 06/24/19 13:20 86 18 99 Nasal Cannula 2.0 28 82 18 95 06/24/19 10:36 129/61 06/24/19 08:00 97.5 73 18 112/46 (68) 97 06/24/19 06:50 96 Nasal Cannula 2.0 28 06/24/19 06:50 88 20 99 Nasal Cannula 2.0 28 70 18 96 06/24/19 04:00 92 06/24/19 04:00 98.6 100 18 119/59 (79) 98 06/24/19 01:12 93 20 98 Nasal Cannula 2.0 28 94 20 95 06/24/19 00:00 113 06/24/19 00:00 98.6 99 18 126/69 (88) 96 06/23/19 22:15 97.9 06/23/19 22:05 98 20 99 Nasal Cannula 2.0 96 20 95 06/23/19 21:00 Room Air 06/23/19 20:00 79 06/23/19 20:00 98.2 99 18 125/55 (78) 100 06/23/19 19:59 84 20 99 Nasal Cannula 2.0 28 83 20 95 06/23/19 19:59 95 Nasal Cannula 2.0 28 06/23/19 16:00 97.9 83 18 115/87 (96) 99 06/23/19 16:00 73 Intake and Output 06/23/19 06/24/19 18:59 06:59 Intake Total 720 ml Balance 720 ml Intake Oral 720 ml # Voids 3 3 Height (Feet): 5 Height (Inches): 1.00 Weight (Pounds): 163 General Appearance: no apparent distress EENT: PERRL/EOMI Neck: supple Cardiovascular: normal rate, regular rhythm, no gallop/murmur Respiratory/Chest: lungs clear, normal breath sounds, other - prolonged end expiratory phase Abdomen: non tender, soft Extremities: normal range of motion Edema: other - no edema 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 Jun 24, 2019 15:34
[2019-06-24 16:00] VITALS: BP 111/67
[2019-06-24] MEDS: guaiFENesin w/Codeine 5ml Liq ud ORAL PRN (19:49)
[2019-06-24 20:00] VITALS: BP 135/71
[2019-06-24] MEDS ORDERED: Vancomycin 1.5gm/NS Premix 275 ML IVPB ONE (20:00)
[2019-06-24] MEDS: Zolpidem 5mg tab ORAL SCH (20:31)
[2019-06-24] MEDS: Enoxaparin 40mg Inj SUBQ SCH (20:35)
[2019-06-25] VITALS: BP 127/65
[2019-06-25] MEDS: Albuterol/Ipratropium 3ml neb HHN SCH ×4 (01:05→19:45)
[2019-06-25] MEDS: guaiFENesin w/Codeine 5ml Liq ud ORAL PRN ×4 (02:45→23:07)
[2019-06-25 04:03] VITALS: BP 137/65
[2019-06-25] MEDS: metFORMIN 500mg tab ORAL SCH ×3 (06:00→17:25)
[2019-06-25] MEDS: NovoLOG Insulin Flexpen SUBQ SCH ×4 (06:01→21:19)
--- NOTE | 2019-06-25 07:33 | Pulmonology Progress Note ---
Assessment/Plan Assessment/Plan IMPRESSION: 1. Exacerbation of COPD. 2. Cardiac arrhythmias. 3. Diabetes mellitus. 4. Hypertension. 5. Hyperlipidemia. DISCUSSION: 1. Admit to the hospital. 2. Continue steroids and breathing treatments. 3 Continue azithromycin 4. Continue home medications. 5. Continue metformin. 6. Continue Robitussin with codeine for her symptoms. 7. 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 Omar Mark M.D. Subjective Interval Events: None new Constitutional: Reports: no symptoms HEENT: Repors: no symptoms Respiratory: Reports: productive cough, shortness of breath Cardiovascular: Reports: no symptoms Gastrointestinal/Abdominal: Reports: no symptoms Genitourinary: Reports: no symptoms Allergies: Coded Allergies: CEPHALEXIN (Verified Allergy, Unknown, 11/27/11) LEVOFLOXACIN (Verified Allergy, Unknown, 02/09/09) SULFA (SULFONAMIDE ANTIBIOTICS) (Verified Allergy, Unknown, 02/09/09) Objective Last 24 Hour Vital Signs Date Time Temp Pulse Resp B/P (MAP) Pulse Ox O2 Delivery O2 Flow Rate FiO2 06/25/19 04:28 84 06/25/19 04:03 98.4 78 20 137/65 (89) 98 06/25/19 00:00 104 06/25/19 00:00 98.4 88 20 127/65 (85) 97 06/24/19 21:00 Room Air 06/24/19 20:19 91 16 98 Nasal Cannula 2.0 28 89 18 95 06/24/19 20:19 95 Nasal Cannula 2.0 28 06/24/19 20:00 96 06/24/19 20:00 97.9 84 20 135/71 (92) 97 06/24/19 16:00 98.3 87 18 111/67 (82) 98 06/24/19 16:00 87 06/24/19 13:20 86 18 99 Nasal Cannula 2.0 28 82 18 95 06/24/19 12:00 98.4 101 18 106/80 (89) 95 06/24/19 12:00 77 06/24/19 10:36 129/61 06/24/19 09:00 Room Air 06/24/19 08:00 97.5 73 18 112/46 (68) 97 06/24/19 08:00 81 Intake and Output 06/24/19 06/25/19 19:00 07:00 Intake Total 810 ml Balance 810 ml Intake Oral 810 ml # Voids 5 3 # Bowel Movements 1 General Appearance: no acute distress HEENT: normocephalic Respiratory/Chest: chest wall non-tender, lungs clear Cardiovascular: normal peripheral pulses Abdomen: normal bowel sounds Microbiology Date/Time Source Procedure Growth Status 06/23/19 16:46 Blood Blood Culture - Preliminary NO GROWTH AFTER 24 HOURS Resulted 06/22/19 14:20 Blood Blood Culture - Final Staphylococcus Warneri Complete 06/22/19 14:05 Blood Blood Culture - Final Staphylococcus Warneri Complete Current Medications Medications (Trade) Dose Ordered Sig/Aide Route PRN Reason Start Time Stop Time Status Last Admin Dose Admin Acetaminophen/ Hydrocodone Bitart ([place] 5/325) 1 tab Q6H PRN ORAL For Pain 06/23/19 21:00 06/30/19 20:59 06/23/19 21:43 Albuterol Sulfate (Proventil) 2.5 mg Q4H PRN HHN Shortness of Breath 06/22/19 16:45 06/27/19 16:44 06/23/19 22:05 Albuterol/ Ipratropium (Albuterol/ Ipratropium) 3 ml Q6HRT HHN 06/22/19 19:00 06/27/19 18:59 06/24/19 20:19 Amiodarone HCl (Cordarone) 100 mg DAILY ORAL 06/23/19 09:00 07/23/19 08:59 06/24/19 10:31 Aspirin (Ecotrin) 81 mg DAILY ORAL 06/23/19 09:00 07/23/19 08:59 06/24/19 10:31 Azithromycin 500 mg/Dextrose 275 ml @ 275 mls/hr Q24H IV 06/25/19 09:00 07/02/19 08:59 Dextrose (Dextrose 50%) 25 ml Q30M PRN IV Hypoglycemia 06/22/19 16:00 07/22/19 15:59 Dextrose (Dextrose 50%) 50 ml Q30M PRN IV Hypoglycemia 06/22/19 16:00 07/22/19 15:59 Enoxaparin Sodium (Lovenox) 40 mg QHS SUBQ 06/22/19 21:00 07/22/19 20:59 06/24/19 20:35 Famotidine (Pepcid) 40 mg DAILY ORAL 06/23/19 09:00 07/23/19 08:59 06/24/19 10:37 Guaifenesin/ Codeine Phosphate (Robitussin with codeine) 5 ml Q6H PRN ORAL For Cough 06/23/19 10:15 07/23/19 10:14 06/25/19 02:45 HCTZ/Losartan Potassium (Hyzaar 50-12.5) 1 tab DAILY ORAL 06/23/19 11:30 07/23/19 11:29 06/24/19 10:36 Insulin Aspart (NovoLOG) BEFORE MEALS AND HS SUBQ 06/23/19 06:30 07/23/19 06:29 06/25/19 06:01 Lorazepam (Ativan 2mg/ml 1ml) 0.5 mg Q4H PRN IV For Anxiety 06/22/19 16:00 06/29/19 15:59 Metformin HCl (Glucophage) 500 mg TIAC ORAL 06/23/19 11:30 07/23/19 11:29 06/25/19 06:00 Methylprednisolone Sodium Succinate (Solu-MEDROL) 40 mg EVERY 12 HOURS IVP 06/24/19 21:00 07/22/19 21:59 06/24/19 20:33 Morphine Sulfate (Morphine Sulfate) 2 mg Q4H PRN IVP Moderate Pain (Pain Scale 4-6) 06/22/19 16:00 06/29/19 15:59 Morphine Sulfate (Morphine Sulfate) 4 mg Q4H PRN IVP Severe Pain (Pain Scale 7-10) 06/22/19 16:00 06/29/19 15:59 Nitroglycerin (Ntg) 0.4 mg Q5M PRN SL CHESTPAIN 06/22/19 16:00 07/22/19 15:59 Ondansetron HCl (Zofran) 4 mg Q6H PRN IVP Nausea & Vomiting 06/22/19 16:00 07/22/19 15:59 Pravastatin Sodium (Pravachol) 10 mg BEDTIME ORAL 06/22/19 21:00 07/22/19 20:59 06/24/19 20:31 Zolpidem Tartrate (Ambien) 10 mg BEDTIME ORAL 06/22/19 21:00 06/29/19 20:59 06/24/19 20:31 Omar Mark MD Jun 25, 2019 07:33
[2019-06-25 08:00] VITALS: BP 128/64
--- NOTE | 2019-06-25 08:46 | General Progress Note ---
Assessment/Plan Problem List: (1) medication non-compliance Status: doing well, progressing Assessment/Plan: 64-year-old female wuth history of diabetes mellitus,cardiac arrhythmias, and COPD. She has had fevers and greenish phlegm at home. Admitted for COPD exacerbation. Assessment: 1. Acute exacerbation of COPD. 2. Cardiac arrhythmias. 3. Diabetes mellitus. 4. Hypertension. 5. Hyperlipidemia. 6. Gram postive cocci in clusters from both bottles of blood cultures- likely contaminant Plan: Continue steroids and breathing treatments. Taper methylpred as she progresses. Pulmonary consult appreciated IV Azithromycin. Hold off on ceftriaxone per pulmonary Repeat blood cultures show no growth in 24 hours. s/p one dose of IV vancomycin 1.5g Continue home medications. including amiodarone. Follow up TSK levels Continue metformin. Add insulin while on methylpred Activity as tolerated. DVT ppx pending activity level GI ppx FULL CODE DC planning for 06/26/19 Time of this note may not reflect the time of patient encounter. I spent 40 minutes on this encounter. Greater than 50% spent on counselling and care coordination Subjective Date patient seen: Jun 25, 2019 ROS Limited/Unobtainable: No Constitutional: Denies: no symptoms, chills, diaphoresis, fever, malaise, weakness, other HEENT: Denies: no symptoms, eye pain, blurred vision, tearing, double vision, ear pain, ear discharge, nose pain, nose congestion, throat pain, throat swelling, mouth pain, mouth swelling, other Cardiovascular: Denies: no symptoms, chest pain, edema, irregular heart rate, lightheadedness, palpitations, syncope, other Respiratory: Reports: cough, shortness of breath Gastrointestinal/Abdominal: Denies: no symptoms, abdomen distended, abdominal pain, black stools, tarry stools, blood in stool, constipated, diarrhea, difficulty swallowing, nausea, poor appetite, poor fluid intake, rectal bleeding , vomiting, other Genitourinary: Denies: no symptoms, burning, discharge, frequency, flank pain, hematuria, incontinence, pain, urgency, other Neurologic/Psychiatric: Denies: no symptoms, anxiety, depressed, emotional problems, headache, numbness, paresthesia, pre-existing deficit, seizure, tingling, tremors, weakness, other Endocrine: Denies: no symptoms, excessive sweating, flushing, intolerance to cold, intolerance to heat, increased hunger, increased thirst, increased urine, unexplained weight gain, unexplained weight loss, other Hematologic/Lymphatic: Denies: no symptoms, anemia, easy bleeding, easy bruising, other Allergies: Coded Allergies: CEPHALEXIN (Verified Allergy, Unknown, 11/27/11) LEVOFLOXACIN (Verified Allergy, Unknown, 02/09/09) SULFA (SULFONAMIDE ANTIBIOTICS) (Verified Allergy, Unknown, 02/09/09) Subjective doing better Still coughing Objective Last 24 Hour Vital Signs Date Time Temp Pulse Resp B/P (MAP) Pulse Ox O2 Delivery O2 Flow Rate FiO2 06/25/19 07:38 95 Nasal Cannula 2.0 28 06/25/19 07:36 80 16 99 Nasal Cannula 2.0 28 75 18 95 06/25/19 04:28 84 06/25/19 04:03 98.4 78 20 137/65 (89) 98 06/25/19 00:00 104 06/25/19 00:00 98.4 88 20 127/65 (85) 97 06/24/19 21:00 Room Air 06/24/19 20:19 91 16 98 Nasal Cannula 2.0 28 89 18 95 06/24/19 20:19 95 Nasal Cannula 2.0 28 06/24/19 20:00 96 06/24/19 20:00 97.9 84 20 135/71 (92) 97 06/24/19 16:00 98.3 87 18 111/67 (82) 98 06/24/19 16:00 87 06/24/19 13:20 86 18 99 Nasal Cannula 2.0 28 82 18 95 06/24/19 12:00 98.4 101 18 106/80 (89) 95 06/24/19 12:00 77 06/24/19 10:36 129/61 06/24/19 09:00 Room Air Intake and Output 06/24/19 06/25/19 19:00 07:00 Intake Total 810 ml 120 ml Balance 810 ml 120 ml Intake Oral 810 ml 120 ml # Voids 5 3 # Bowel Movements 1 Height (Feet): 5 Height (Inches): 1.00 Weight (Pounds): 163 Objective General Appearance: no apparent distress, intermittent coughing EENT: PERRL/EOMI Neck: supple Cardiovascular: normal rate, regular rhythm, no gallop/murmur Respiratory/Chest: lungs clear, normal breath sounds, other - prolonged end expiratory phase Abdomen: non tender, soft Extremities: normal range of motion Edema: other - no edema 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 Jun 25, 2019 08:46
[2019-06-25] MEDS: Solu-MEDROL 40mg Inj IVP SCH ×2 (09:37→21:16)
[2019-06-25] MEDS: Aspirin EC 81mg tab ORAL SCH (09:39)
[2019-06-25] MEDS: Hyzaar 12.5mg/50mg tab ORAL SCH (09:39)
[2019-06-25] MEDS: Amiodarone 200mg tab ORAL SCH (09:40)
[2019-06-25] MEDS: Azithromycin 500 MG in D5W 275 ML IV SCH (09:47)
[2019-06-25 12:00] VITALS: BP 125/75
[2019-06-25 16:00] VITALS: BP 133/65
[2019-06-25 20:00] VITALS: BP 125/53
[2019-06-25] MEDS: Zolpidem 5mg tab ORAL SCH (21:17)
[2019-06-25] MEDS: Enoxaparin 40mg Inj SUBQ SCH (21:18)
[2019-06-26] VITALS: BP 157/67
[2019-06-26] MEDS: Albuterol/Ipratropium 3ml neb HHN SCH ×3 (00:16→12:12)
[2019-06-26 04:00] VITALS: BP 123/59
[2019-06-26 06:56] LABS: ALANINE AMINOTRANSFERASE 18 U/L (12-78); ALBUMIN 3.2 G/DL (3.4-5.0); ALBUMIN/GLOBULIN RATIO 0.9 (1.0-2.7); ALKALINE PHOSPHATASE 65 U/L (46-116); ANION GAP 8 mmol/L (5-15); ASPARTATE AMINO TRANSFERASE 13 U/L (15-37); BILIRUBIN,TOTAL 0.2 MG/DL (0.2-1.0); BLOOD UREA NITROGEN 18 mg/dL (7-18); CALCIUM 9.4 MG/DL (8.5-10.1); CARBON DIOXIDE 29 MMOL/L (21-32); CHLORIDE 106 MMOL/L (98-107); CREATININE 0.9 MG/DL (0.55-1.30); POTASSIUM 4.8 MMOL/L (3.5-5.1); SODIUM 143 MMOL/L (136-145)
[2019-06-26] MEDS: guaiFENesin w/Codeine 5ml Liq ud ORAL PRN (06:57)
[2019-06-26] MEDS: metFORMIN 500mg tab ORAL SCH ×2 (06:57→11:37)
[2019-06-26] MEDS: NovoLOG Insulin Flexpen SUBQ SCH (06:59)
[2019-06-26 07:11] LABS: HEMATOCRIT 41.5 % (37.0-47.0); HEMOGLOBIN 13.4 G/DL (12.0-16.0); MEAN CORPUSCULAR VOLUME 88 FL (80-99); PLATELET COUNT 223 K/UL (150-450); RED BLOOD COUNT 4.73 M/UL (4.20-5.40); RED CELL DISTRIBUTION WIDTH 12.5 % (11.6-14.8); WHITE BLOOD COUNT 10.9 K/UL (4.8-10.8)
[2019-06-26 08:13] VITALS: BP 119/66
[2019-06-26] MEDS ORDERED: Solu-MEDROL 40mg Inj IVP SCH (09:00)
--- NOTE | 2019-06-26 09:31 | Discharge Summary ---
Discharge Summary Hospital Course Date of Admission Jun 22, 2019 at 14:15 Date of Discharge 06/26/2019 Admitting Diagnosis chest pain/copd HPI Gemma Cedeño is a 64 year old female who was admitted on Jun 22, 2019 at 14:15 for Chest Pain,Chronic Obstructive Pulmonary Disease Consultations Pulmonary: Dr. Omar Mark Hospital Course 64-year-old female with history of diabetes mellitus,cardiac arrhythmias, and COPD. She has had fevers and greenish phlegm at home. Admitted for COPD exacerbation. DC diagnosis 1. Acute exacerbation of COPD. 2. Cardiac arrhythmias. 3. Diabetes mellitus. 4. Hypertension. 5. Hyperlipidemia. 6. Gram postive cocci in clusters from both bottles of blood cultures- contaminant. Repeat cultures were negative Course: Patient received tapering doses of IV methylprednisolone, Azithromycin, bronchodilators and cough suppressant. pulmonary consulted (Dr. Mark). Initial blood cultures grew gram + cocci in clusters which turned out to be a contaminant. repeat cultures negative for 48 hours. She received one dose of Vancomycin. Her glucose was controlled with metformin and insulin. she was counselled on proper use of Symbicort and instructed that this is a scheduled medication and not prn. she still occasionally smokes cigarettes and advised to stop. She will follow with Dr. Mark in the office on 06/29/2019 DC medications: Azithromycin 500mg daily for 3 days, Guaianesin/codeine cough suppressant. Resume home medications Time of this note may not reflect the time of patient encounter. I spent >30 minutes on this encounter. Discharge Condition Upon Discharge: stable Discharge Disposition Patient was discharged to home with self care. Discharge Diagnoses: (1) Acute exacerbation of chronic obstructive pulmonary disease (COPD) (2) Chest pain (3) History of cardiac arrhythmia (4) DM (diabetes mellitus) Bernard Valdovinos M.D. Jun 26, 2019 09:31
--- NOTE | 2019-06-26 09:40 | Pulmonology Progress Note ---
Assessment/Plan Assessment/Plan IMPRESSION: 1. Exacerbation of COPD. 2. Cardiac arrhythmias. 3. Diabetes mellitus. 4. Hypertension. 5. Hyperlipidemia. DISCUSSION: 1. Admit to the hospital. 2. Continue steroids and breathing treatments. 3 Continue azithromycin 4. Continue home medications. 5. Continue metformin. 6. Continue Robitussin with codeine for her symptoms. 7. I will follow as computational scientist. 8.Agree with dc plans 06/26/19 Omar Mark M.D. Subjective Interval Events: None new; feeling better Constitutional: Reports: no symptoms HEENT: Repors: no symptoms Respiratory: Reports: no symptoms Cardiovascular: Reports: no symptoms Allergies: Coded Allergies: CEPHALEXIN (Verified Allergy, Unknown, 11/27/11) LEVOFLOXACIN (Verified Allergy, Unknown, 02/09/09) SULFA (SULFONAMIDE ANTIBIOTICS) (Verified Allergy, Unknown, 02/09/09) Objective Last 24 Hour Vital Signs Date Time Temp Pulse Resp B/P (MAP) Pulse Ox O2 Delivery O2 Flow Rate FiO2 06/26/19 08:13 73 119/66 (83) 06/26/19 07:30 97.9 06/26/19 07:17 74 16 99 Nasal Cannula 2.0 28 68 16 96 06/26/19 07:17 96 Nasal Cannula 2.0 28 06/26/19 04:00 97.9 62 18 123/59 (80) 96 06/26/19 04:00 65 06/26/19 00:16 80 18 98 Nasal Cannula 2.0 28 81 18 94 06/26/19 00:00 81 06/26/19 00:00 97.5 71 18 157/67 (97) 99 06/25/19 20:31 Room Air 06/25/19 20:00 81 06/25/19 20:00 98.4 78 18 125/53 (77) 96 06/25/19 19:48 95 Nasal Cannula 2.0 28 06/25/19 19:46 90 18 99 Nasal Cannula 2.0 28 89 18 95 06/25/19 16:00 78 06/25/19 16:00 98.1 74 18 133/65 (87) 92 06/25/19 12:31 81 18 99 Nasal Cannula 2.0 28 82 18 95 06/25/19 12:00 87 06/25/19 12:00 97.3 83 18 125/75 (92) 94 Intake and Output 06/25/19 06/26/19 19:00 07:00 Intake Total 320 ml Balance 320 ml Intake Oral 320 ml # Voids 2 3 General Appearance: no acute distress HEENT: normocephalic Respiratory/Chest: chest wall non-tender, lungs clear, rhonchi Cardiovascular: normal peripheral pulses, normal rate Microbiology Date/Time Source Procedure Growth Status 06/23/19 16:46 Blood Blood Culture - Preliminary NO GROWTH AFTER 48 HOURS Resulted Laboratory Tests 06/26/19 06:05: White Blood Count 10.9H, Red Blood Count 4.73, Hemoglobin 13.4, Hematocrit 41.5 , Mean Corpuscular Volume 88, Mean Corpuscular Hemoglobin 28.3, Mean Corpuscular Hemoglobin Concent 32.2, Red Cell Distribution Width 12.5, Platelet Count 223, Mean Platelet Volume 6.7, Neutrophils (%) (Auto) , Lymphocytes (%) ( Auto) , Monocytes (%) (Auto) , Eosinophils (%) (Auto) , Basophils (%) (Auto) , Differential Total Cells Counted 100, Neutrophils % (Manual) 87H, Lymphocytes % (Manual) 6L, Monocytes % (Manual) 7, Eosinophils % (Manual) 0, Basophils % ( Manual) 0, Band Neutrophils 0, Platelet Estimate Adequate, Platelet Morphology Normal, Red Blood Cell Morphology Normal, Sodium Level 143, Potassium Level 4.8 , Chloride Level 106, Carbon Dioxide Level 29, Anion Gap 8, Blood Urea Nitrogen 18, Creatinine 0.9, Estimat Glomerular Filtration Rate > 60, Glucose Level 168H , Calcium Level 9.4, Total Bilirubin 0.2, Aspartate Amino Transf (AST/SGOT) 13L , Alanine Aminotransferase (ALT/SGPT) 18, Alkaline Phosphatase 65, Total Protein 6.9, Albumin 3.2L, Globulin 3.7, Albumin/Globulin Ratio 0.9L Current Medications Medications (Trade) Dose Ordered Sig/Aide Route PRN Reason Start Time Stop Time Status Last Admin Dose Admin Acetaminophen (Tylenol) 650 mg Q6H PRN ORAL Mild Pain/Temp > 100.5 06/25/19 15:45 07/25/19 15:44 06/26/19 06:57 Acetaminophen/ Hydrocodone Bitart ([place] 5/325) 1 tab Q6H PRN ORAL For Pain 06/23/19 21:00 06/30/19 20:59 06/23/19 21:43 Albuterol Sulfate (Proventil) 2.5 mg Q4H PRN HHN Shortness of Breath 06/22/19 16:45 06/27/19 16:44 06/23/19 22:05 Albuterol/ Ipratropium (Albuterol/ Ipratropium) 3 ml Q6HRT HHN 06/22/19 19:00 06/27/19 18:59 06/26/19 07:15 Amiodarone HCl (Cordarone) 100 mg DAILY ORAL 06/23/19 09:00 07/23/19 08:59 06/25/19 09:40 Aspirin (Ecotrin) 81 mg DAILY ORAL 06/23/19 09:00 07/23/19 08:59 06/25/19 09:39 Azithromycin 500 mg/Dextrose 275 ml @ 275 mls/hr Q24H IV 06/25/19 09:00 07/02/19 08:59 06/25/19 09:47 Dextrose (Dextrose 50%) 25 ml Q30M PRN IV Hypoglycemia 06/22/19 16:00 07/22/19 15:59 Dextrose (Dextrose 50%) 50 ml Q30M PRN IV Hypoglycemia 06/22/19 16:00 07/22/19 15:59 Enoxaparin Sodium (Lovenox) 40 mg QHS SUBQ 06/22/19 21:00 07/22/19 20:59 06/25/19 21:18 Famotidine (Pepcid) 40 mg DAILY ORAL 06/23/19 09:00 07/23/19 08:59 06/25/19 09:38 Guaifenesin/ Codeine Phosphate (Robitussin with codeine) 5 ml Q6H PRN ORAL For Cough 06/23/19 10:15 07/23/19 10:14 06/26/19 06:57 HCTZ/Losartan Potassium (Hyzaar 50-12.5) 1 tab DAILY ORAL 06/23/19 11:30 07/23/19 11:29 06/25/19 09:39 Insulin Aspart (NovoLOG) BEFORE MEALS AND HS SUBQ 06/23/19 06:30 07/23/19 06:29 06/26/19 06:59 Lorazepam (Ativan 2mg/ml 1ml) 0.5 mg Q4H PRN IV For Anxiety 06/22/19 16:00 06/29/19 15:59 Metformin HCl (Glucophage) 500 mg TIAC ORAL 06/23/19 11:30 07/23/19 11:29 06/26/19 06:57 Methylprednisolone Sodium Succinate (Solu-MEDROL) 40 mg DAILY IVP 06/26/19 09:00 07/22/19 21:59 Morphine Sulfate (Morphine Sulfate) 2 mg Q4H PRN IVP Moderate Pain (Pain Scale 4-6) 06/22/19 16:00 06/29/19 15:59 Morphine Sulfate (Morphine Sulfate) 4 mg Q4H PRN IVP Severe Pain (Pain Scale 7-10) 06/22/19 16:00 06/29/19 15:59 Nitroglycerin (Ntg) 0.4 mg Q5M PRN SL CHESTPAIN 06/22/19 16:00 07/22/19 15:59 Ondansetron HCl (Zofran) 4 mg Q6H PRN IVP Nausea & Vomiting 06/22/19 16:00 07/22/19 15:59 Pravastatin Sodium (Pravachol) 10 mg BEDTIME ORAL 06/22/19 21:00 07/22/19 20:59 06/25/19 21:17 Zolpidem Tartrate (Ambien) 10 mg BEDTIME ORAL 06/22/19 21:00 06/29/19 20:59 06/25/19 21:17 Omar Mark MD Jun 26, 2019 09:40
[2019-06-26] MEDS: Amiodarone 200mg tab ORAL SCH (10:00)
[2019-06-26] MEDS: Solu-MEDROL 40mg Inj IVP SCH (10:00)
[2019-06-26 10:01] VITALS: BP 119/66
[2019-06-26] MEDS: Azithromycin 500 MG in D5W 275 ML IV SCH (10:01)
[2019-06-26] MEDS: Hyzaar 12.5mg/50mg tab ORAL SCH (10:01)
[2019-06-26] MEDS: Aspirin EC 81mg tab ORAL SCH (10:01)
--- NOTE | 2019-06-26 11:39 | Cardiology Report ---
APPROVED REPORT EKG Measurement Heart [id number] NH [id number] Normal sinus rhythm Possible Left atrial enlargement Borderline ECG
== END 2019-06-26 12:30 | disposition home health service (06) | DRG 192 ==
LOC: EMR 14:05 → 2E 14:15 → EDBEDREQ 16:41
DX: J44.1 Chronic obstructive pulmonary disease with (acute) exacerbation (principal); I10 Essential (primary) hypertension; I49.9 Cardiac arrhythmia, unspecified; F17.200 Nicotine dependence, unspecified, uncomplicated; Z88.1 Allergy status to other antibiotic agents; Z88.2 Allergy status to sulfonamides; E78.5 Hyperlipidemia, unspecified; R07.9 Chest pain, unspecified; E11.9 Type 2 diabetes mellitus without complications; Z79.84 Long term (current) use of oral hypoglycemic drugs; Z79.82 Long term (current) use of aspirin; Z91.14 Patient's other noncompliance with medication regimen
CPT/HCPCS: 36415; 71045; 80048; 80053; 81003; 82550; 82962; 83605; 83690; 83880; 84443; 84484; 85007; 85025; 85610; 85730; 87040; 87181; 93005; 94640; 96361; 96374; 96375; 99285; J1815; J2405; J7620

== ENCOUNTER 2019-11-29 12:41 | Inpatient (IN) | payer MEDICARE, OTHER ==
[~2019-11-29] VITALS: Ht 154.9 cm; Wt 72.6 kg
[2019-11-29 13:10] VITALS: BP 174/84
--- NOTE | 2019-11-29 13:18 | NUR ---
ED Nurse Note: Pt walked in from home c/o epigastric abdominal pain to mid-abdomen x 2 days. Pt c/o N/V. Denies diarrhea. BP elevated @ 170s systolic at triage. Pt reports throwing up after taking her bp emdication last night. Respirations even and unlabored on room air. Vitals stable as documented.
[2019-11-29] MEDS ORDERED: Omnipaque-300 100ml vial INJ PRN (13:30)
[2019-11-29] MEDS ORDERED: Morphine Sulfate 2mg/ml Inj(IV/IM USE ONLY) IVP ONE (14:00)
--- NOTE | 2019-11-29 14:10 | Diagnostic Imaging Report ---
Indication: Dyspnea Comparison: 06/22/2019 A single view chest radiograph was obtained. Findings: Interstitial densities are prominent. The heart is borderline enlarged. Pulmonary vascularity is mildly prominent. Resumption versus resection of the left distal clavicle noted. IMPRESSION: Query mild CHF
[2019-11-29 14:27] LABS: BASOPHILS % (AUTO) 0.9 % (0.0-2.0); HEMATOCRIT 48.3 % (37.0-47.0); HEMOGLOBIN 16.5 G/DL (12.0-16.0); LYMPHOCYTES % (AUTO) 12.8 % (20.0-45.0); MEAN CORPUSCULAR VOLUME 85 FL (80-99); MONOCYTES % (AUTO) 7.2 % (1.0-10.0); PLATELET COUNT 237 K/UL (150-450); RED BLOOD COUNT 5.68 M/UL (4.20-5.40); WHITE BLOOD COUNT 8.9 K/UL (4.8-10.8)
[2019-11-29 14:35] LABS: APPEARANCE,URINE SLIGHTLY CLOUDY; BILIRUBIN, URINE NEGATIVE (NEGATIVE); COLOR,URINE PALE YELLOW; GLUCOSE, URINE (UA) NEGATIVE (NEGATIVE); KETONES,URINE 1+ (NEGATIVE); LEUKOCYTE ESTERASE ,URINE NEGATIVE (NEGATIVE); NITRITE,URINE NEGATIVE (NEGATIVE); PH,URINE 7 (4.5-8.0); PROTEIN,URINE 2+ (NEGATIVE); UROBILINOGEN,URINE NORMAL MG/DL (0.0-1.0)
[2019-11-29 14:39] LABS: ANION GAP 11 mmol/L (5-15); BLOOD UREA NITROGEN 8 mg/dL (7-18); CALCIUM 9.7 MG/DL (8.5-10.1); CARBON DIOXIDE 29 MMOL/L (21-32); CHLORIDE 99 MMOL/L (98-107); CREATININE 0.7 MG/DL (0.55-1.30); POTASSIUM 3.8 MMOL/L (3.5-5.1); SODIUM 139 MMOL/L (136-145)
[2019-11-29 14:43] LABS: ALANINE AMINOTRANSFERASE 22 U/L (12-78); ALBUMIN 4.1 G/DL (3.4-5.0); ALKALINE PHOSPHATASE 112 U/L (46-116); ASPARTATE AMINO TRANSFERASE 16 U/L (15-37); BILIRUBIN,TOTAL 0.3 MG/DL (0.2-1.0)
--- NOTE | 2019-11-29 14:52 | Emergency Room Report ---
History of Present Illness General Chief Complaint: Abdominal Pain Source: Patient Present Illness HPI 64-year-old female with history of type 2 diabetes, hypertension, hyperlipidemia controlled, Dr. Curry's patient, here complaining of diffuse abdominal pain x3 days as well as blood in stool with diarrhea times few weeks. Patient went to [facility] yesterday and had a CT scan done and labs and everything was within normal limit and was diagnosed with hemorrhoids. Patient complains of few bouts of nonbloody emesis complains of blood-tinged emesis that started today. Denies fever and chills recent travel. Appears to be stable with stable vital signs. But blood pressure slightly elevated and reports that has not taken her blood pressure medication today. Denies any drug use, tobacco smoke, alcohol intake. However toxin is positive for cocaine. Denies urinary symptoms. Complains of clotting rectally x2 days. Has not had a colonoscopy in the past. Otherwise appears to be stable, denying chest pain shortness of breath, palpitation, headache and dizziness. Allergies: Coded Allergies: CEPHALEXIN (Verified Allergy, Unknown, 11/27/11) LEVOFLOXACIN (Verified Allergy, Unknown, 02/09/09) SULFA (SULFONAMIDE ANTIBIOTICS) (Verified Allergy, Unknown, 02/09/09) Patient History Past Medical History: see triage record Past Surgical History: hysterectomy Pertinent Family History: none Now: No Immunizations: UTD Reviewed Nursing Documentation: PMH: Agreed; PSxH: Agreed Nursing Documentation-PM Past Medical History: No History, Except For Hx Cardiac Problems: Yes - AFIB Hx Hypertension: Yes Hx Diabetes: Yes Hx Cancer: No Hx Gastrointestinal Problems: No Hx Neurological Problems: No Review of Systems All Other Systems: negative except mentioned in HPI Physical Exam Vital Signs Date Time Temp Pulse Resp B/P (MAP) Pulse Ox O2 Delivery O2 Flow Rate FiO2 11/29/19 13:06 98.2 19 99 Room Air 11/29/19 13:10 95 11/29/19 13:10 174/84 Sp02 EP Interpretation: reviewed, normal, abnormal - BP 174/84 General Appearance: alert, GCS 15, non-toxic, mild distress Head: normocephalic, atraumatic Eyes: bilateral eye normal inspection, bilateral eye PERRL ENT: hearing grossly normal, normal pharynx, no angioedema, normal voice Neck: full range of motion, supple, supple/symm/no masses Respiratory: chest non-tender, lungs clear, normal breath sounds, no rhonchi, no respiratory distress, no retraction, no wheezing, speaking full sentences Cardiovascular #1: regular rate, rhythm, no edema, no murmur, normal capillary refill Cardiovascular #2: 2+ carotid (R), 2+ carotid (L), 2+ radial (R), 2+ radial (L) Gastrointestinal: non tender, soft, no mass, no organomegaly, no peritonitis, no bruit, non-distended, no guarding, no hernia, no pulsatile mass, no rebound Rectal: deferred Genitourinary: no CVA tenderness Musculoskeletal: back normal, no calf tenderness Neurologic: alert, motor strength/tone normal, oriented x3, sensory intact, responsive, speech normal Psychiatric: normal inspection, judgement/insight normal, memory normal Skin: no rash Lymphatic: no adenopathy Medical Decision Making PA Attestation All my diagnosis and treatment plans were reviewed ad discussed with my supervising physician Dr. Cedeño Diagnostic Impression: Primary Impression: Upper GI bleed Additional Impression: Cocaine abuse ER Course 64-year-old female with history of type 2 diabetes, hypertension, hyperlipidemia controlled, Dr. Curry's patient, here complaining of diffuse abdominal pain x3 days as well as blood in stool with diarrhea times few weeks. Patient went to [facility] yesterday and had a CT scan done and labs and everything was within normal limit and was diagnosed with hemorrhoids. Patient complains of few bouts of nonbloody emesis complains of blood-tinged emesis that started today. Denies fever and chills recent travel. Appears to be stable with stable vital signs. But blood pressure slightly elevated and reports that has not taken her blood pressure medication today. Denies any drug use, tobacco smoke, alcohol intake. However toxin is positive for cocaine. Denies urinary symptoms. Complains of clotting rectally x2 days. Has not had a colonoscopy in the past. Otherwise appears to be stable, denying chest pain shortness of breath, palpitation, headache and dizziness. Ddx considered but are not limited to: appendicitis, cholecystis, gastritis, gastroenteritis, UTI, pyelonephritis, SBO, diverticulitis, influenza with GI manifestation, SD, possible upper GI bleed Vital signs: are WNL, pt. is afebrile H&PE are most consistent with: Possible upper GI bleed, cocaine abuse ORDERS: Abdominal pain set, no CT scan necessary at this time patient just had it done yesterday and negative ED INTERVENTIONS: morphine, zofran, pepcid , NS 1000ML, toradol Patient was admitted with diagnosis of possible upper GI bleed to under supervision of : Davidson sanchez stable at time of admission EKG Diagnostic Results Rate: tachycardiac ST Segments: no acute changes Other Impression no acute ST changes Last Vital Signs Date Time Temp Pulse Resp B/P (MAP) Pulse Ox O2 Delivery O2 Flow Rate FiO2 11/29/19 13:10 98.2 95 19 174/84 99 Room Air Status: improved Disposition: ADMITTED INPATIENT Condition: Stable Referrals: Omar Mark MD (PCP) Kimberly Torres Nov 29, 2019 14:52
[2019-11-29] MEDS ORDERED: Losartan 25mg tab ORAL ONE (15:30)
[2019-11-29 15:31] VITALS: BP 200/86
--- NOTE | 2019-11-29 15:31 | NUR ---
ED Nurse Note: Pt's blood pressure 200/86. ED PA aware and ordering medication
--- NOTE | 2019-11-29 16:58 | NUR ---
ED Nurse Note: BP 185/69. ED PA aware.
[2019-11-29 17:03] VITALS: BP 185/69
[2019-11-29 17:45] VITALS: BP 157/65
[2019-11-29] MEDS ORDERED: Ketorolac 30mg Inj IV ONE (18:45)
--- NOTE | 2019-11-29 19:27 | NUR ---
ED Nurse Note: Report given to EULALIA Chun
[2019-11-29 19:28] VITALS: BP 161/73
--- NOTE | 2019-11-29 20:40 | NUR ---
ED Nurse Note: Report given to Jasmina ESTEBAN.
[2019-11-29 20:55] VITALS: BP 155/84
--- NOTE | 2019-11-29 20:55 | NUR ---
TRANSFER TO FLOOR: Patient transferred to Medsurg unit. Report given to Jasmina ESTEBAN. Pt alert and oriented, verbally responsive. Ambulatory. Pt was transferred via wc. No SOB. Not in ny distress. Afebrile. IV line on left wrist 20g patent and intact. Med recon done. No skin issues. All belongings sent with the patient.
--- NOTE | 2019-11-29 21:59 | NUR ---
NURSE NOTES: Received patient via wheel chair. Patient ambulated to the bed, gait steady. Patient is awake, alert and verbally responsive. Able to make needs known. Respiration is even and unlabored. No complaint of pain or discomfort noted. Skin is warm and dry to touch. Abdomen is soft and non distend. Kept clean and comfortable. Noted with belongings, at bedside, will keep at bedside. Noted with upper denture. Will call MD for admission orders. Oriented patient to the room, call light, remote, s/s of distress. Will follow up.
[2019-11-29] MEDS: Amiodarone 200mg tab ORAL SCH (22:00)
[2019-11-30] VITALS: BP 116/79
[2019-11-30] MEDS: Zolpidem 5mg tab ORAL PRN ×2 (00:15→21:16)
[2019-11-30 04:00] VITALS: BP 119/62
--- NOTE | 2019-11-30 07:20 | NUR ---
HAND-OFF: Report given to EULALIA Espinoza.
--- NOTE | 2019-11-30 07:28 | NUR ---
NURSE NOTES: Received report from EULALIA Bo. Patient A&Ox4. On room air, no signs of distress or labored breathing. IV intact, patent, and saline locked. Patient reporting reduced pain. Bed in lowest position with call light in reach. Will continue with plan of care.
[2019-11-30] MEDS ORDERED: Sorbitol Solution UD 30ml ORAL SCH (07:45)
--- NOTE | 2019-11-30 07:45 | General Progress Note ---
Assessment/Plan Assessment/Plan: Assessment - N/V, ? etiology, ? gastroenteritis, seem better - group home intermittent BRBPR, likely hemorrhoidal, needs colonoscopy - NIDDM - HTN - arrhythmia Recommendations - [facility] Check abd [facility] - check stool OB - Protonix - Laxative - Eventual EGD / Colon - can be done next week or as outpatient Thank you Alex Graf MD Subjective Allergies: Coded Allergies: CEPHALEXIN (Verified Allergy, Unknown, 11/27/11) LEVOFLOXACIN (Verified Allergy, Unknown, 02/09/09) SULFA (SULFONAMIDE ANTIBIOTICS) (Verified Allergy, Unknown, 02/09/09) Objective Last 24 Hour Vital Signs Date Time Temp Pulse Resp B/P (MAP) Pulse Ox O2 Delivery O2 Flow Rate FiO2 11/30/19 04:00 98.0 75 18 119/62 (81) 96 11/30/19 00:00 98.6 84 18 116/79 (91) 95 11/29/19 22:01 Room Air 11/29/19 20:55 97.6 86 19 155/84 99 Room Air 11/29/19 20:55 97.6 86 19 155/84 99 Room Air 11/29/19 19:28 98.4 71 16 161/73 96 Room Air 11/29/19 19:21 98.2 11/29/19 19:21 98.2 11/29/19 17:45 98.2 75 18 157/65 99 Room Air 11/29/19 17:12 185/69 11/29/19 17:03 98.2 69 18 185/69 99 Room Air 11/29/19 15:42 200/86 11/29/19 15:31 98.2 75 19 200/86 99 Room Air 11/29/19 13:10 98.2 95 19 174/84 99 Room Air 11/29/19 13:10 95 19 Room Air 11/29/19 13:06 98.2 19 99 Room Air Intake and Output 11/29/19 11/30/19 19:00 07:00 Intake Total 1000 ml Balance 1000 ml Intake Oral 0 ml IV Total 1000 ml # Bowel Movements 1 Laboratory Tests 11/29/19 14:00: White Blood Count 8.9, Red Blood Count 5.68H, Hemoglobin 16.5H, Hematocrit 48.3H , Mean Corpuscular Volume 85, Mean Corpuscular Hemoglobin 29.0, Mean Corpuscular Hemoglobin Concent 34.1, Red Cell Distribution Width 12.0, Platelet Count 237, Mean Platelet Volume 6.9, Neutrophils (%) (Auto) 79.0H, Lymphocytes ( %) (Auto) 12.8L, Monocytes (%) (Auto) 7.2, Eosinophils (%) (Auto) 0.0, Basophils (%) (Auto) 0.9, Prothrombin Time 10.6, Prothromb Time International Ratio 1.0, Activated Partial Thromboplast Time 28, Urine Color Pale yellow, Urine Appearance Slightly cloudy, Urine pH 7, Urine Specific [place] 1.015, Urine Protein 2+H, Urine Glucose (UA) Negative, Urine Ketones 1+H, Urine Blood 2 +H, Urine Nitrite Negative, Urine Bilirubin Negative, Urine Urobilinogen Normal , Urine Leukocyte Esterase Negative, Urine RBC 0-2, Urine WBC 2-4, Urine Squamous Epithelial Cells ManyH, Urine Amorphous Sediment FewH, Urine Bacteria Few, Sodium Level 139, Potassium Level 3.8, Chloride Level 99, Carbon Dioxide Level 29, Anion Gap 11, Blood Urea Nitrogen 8, Creatinine 0.7, Estimat Glomerular Filtration Rate > 60, Glucose Level 136H, Calcium Level 9.7, Total Bilirubin 0.3, Aspartate Amino Transf (AST/SGOT) 16, Alanine Aminotransferase ( ALT/SGPT) 22, Alkaline Phosphatase 112, Troponin I 0.009, Pro-B-Type Natriuretic Peptide 745H, Total Protein 8.3H, Albumin 4.1, Globulin 4.2, Albumin /Globulin Ratio 1.0, Lipase 121, Urine Opiates Screen Negative, Urine Barbiturates Screen Negative, Phencyclidine (PCP) Screen Negative, Urine Amphetamines Screen Negative, Urine Benzodiazepines Screen Negative, Urine Cocaine Screen PositiveH, Urine Marijuana (THC) Screen Negative Height (Feet): 5 Height (Inches): 1.00 Weight (Pounds): 160 Alex Graf MD Nov 30, 2019 07:45
[2019-11-30 08:00] VITALS: BP 117/56
[2019-11-30] MEDS: metFORMIN 500mg tab ORAL SCH ×2 (09:30→17:06)
[2019-11-30] MEDS: Hyzaar 50-12.5mg tab ORAL SCH (09:31)
[2019-11-30] MEDS: Aspirin EC 81mg tab ORAL SCH (09:31)
--- NOTE | 2019-11-30 10:26 | Diagnostic Imaging Report ---
Indication: Abdominal distention and pain Technique: Grayscale and duplex Doppler imaging of the abdomen performed. Comparison: None Findings: The liver is unremarkable. Doppler interrogation of the main portal vein shows patency with hepatopedal, monophasic flow. There is no biliary ductal dilatation identified. Gallbladder is unremarkable. CBD is 2.4 mm. There demonstrated part of the pancreas, aorta and IVC show no definite abnormalities. There is a 2 cm cyst in the lower pole the left kidney. Both kidneys appear unremarkable otherwise. There is no hydronephrosis. IMPRESSION: No acute findings Left renal cyst
[2019-11-30] MEDS: Amiodarone 200mg tab ORAL SCH ×3 (10:58→21:15)
--- NOTE | 2019-11-30 11:06 | NUR ---
CASE MANAGEMENT:INITIAL REVIEW 64 YR OLD FEMALE AMBULATED TO ER FROM HOME CC;ABDOMINAL PAIN SI;UPPER GI BLEED 98.2 95 19 200/86 99% ON RA BNP 745 CXR - MILD CHF ABD US - NEGATIVE IS;ZOFRAN IB X1 FAMOTIDINE IV X1 IVF NS BOLUS X1 MORPHINE IV X1 ADMITTED TO MED SURG MED SURG STATUS DCP; FROM HOME
[2019-11-30] MEDS: NovoLOG Insulin Flexpen SUBQ SCH ×3 (11:30→21:00)
[2019-11-30 12:00] VITALS: BP 113/73
--- NOTE | 2019-11-30 12:15 | Consultation ---
DATE OF CONSULTATION: 11/30/2019 GASTROENTEROLOGY CONSULTATION CONSULTING PHYSICIAN: Alex Graf M.D. CHIEF COMPLAINT: I was asked to see this patient by Dr. Mark for evaluation of vomiting and hematochezia. HISTORY OF PRESENT ILLNESS: The patient is a pleasant 64-year-old woman, who was brought in due to abdominal pain and nausea and vomiting. She is somewhat vague about the duration, but seems to have gotten worse over the last several days. She went to [facility] Emergency room. In that location, she was evaluated for her nausea, vomiting, and her intermittent hematochezia. She states the hematochezia has been going on for months, but she has never had a colonoscopy. She had a CT scan of the abdomen and pelvis that she was told was unremarkable. She was discharged with diagnosis of gastritis with a prescription for proton-pump inhibitor. However, because of these persistent symptoms, she returned to the hospital here and at this location has been admitted. She feels better today. Her drug screen was positive for cocaine, which she smokes. PAST MEDICAL HISTORY: History of arrhythmias, history of atrial fibrillation, diabetes, hypertension, high cholesterol. FAMILY HISTORY: Noncontributory. MEDICATIONS: Amiodarone, losartan, metformin, aspirin, and pravastatin. SOCIAL HISTORY: The patient drinks alcohol occasionally. Smokes cigarettes occasionally and uses cocaine by smoking. ALLERGIES: Cephalexin, levofloxacin, and sulfa. REVIEW OF SYSTEMS: Otherwise negative. PHYSICAL EXAMINATION: GENERAL: This is a pleasant woman, seen in her room. HEENT: Normocephalic and atraumatic. Sclerae anicteric. Oropharynx clear. NECK: Supple. CHEST: Clear to auscultation. CARDIOVASCULAR: Revealed regular rate. ABDOMEN: Soft, mildly obese and nontender with good bowel sounds. There is no organomegaly. EXTREMITIES: Revealed no edema. LABORATORY DATA: Noted. ASSESSMENT: This patient presents with nausea, vomiting, and abdominal discomfort of days' duration. The physical exam was unremarkable. Her laboratories are likewise unremarkable. I will obtain a CT scan of the abdomen and pelvis from the hospital, if presumably that was also negative, an ultrasound to be done to rule out gallstones. However, she may have had a case of gastroenteritis, perhaps gastritis was diagnosed in the emergency room. Proton-pump inhibitor will be reasonable for now, but she can be considered for an endoscopy later today, especially if her symptoms persists. She also has hematochezia, which is in a pattern typical for hemorrhoids. Otherwise, she needs a colonoscopy as well. RECOMMENDATIONS: Per above discussion and per orders written in the chart. Thank you for asking me to participate in care of this patient. Alex Graf M.D. DR: LORI JOB#: [id number] CC: ISAIAS
--- NOTE | 2019-11-30 13:45 | NUR ---
NURSE NOTES: Clarified discharge order with Dr. Mark. Expressed concern that patient still has abdominal pain and nausea, that OB stool result is pending, and discrepancies with home medications. MD stated that he discussed case with consulting physician, Dr. Graf and patient will be discharged. Charge nurse aware.
--- NOTE | 2019-11-30 14:16 | NUR ---
NURSE NOTES: Patient Stated she was still having abdominal pain and did not feel comfortable being discharged. MD Mark was called and he stated hold discharge. Pain medication was changed. RN notified as well discharge planning.
--- NOTE | 2019-11-30 15:13 | NUR ---
HAND-OFF: Report given to EULALIA Smart. Rounds done. Patient stable.
[2019-11-30 16:00] VITALS: BP 154/90
[2019-11-30] MEDS: HYDROcodone/Acetamin 5/325 tab ORAL PRN (18:21)
--- NOTE | 2019-11-30 19:28 | NUR ---
HAND-OFF: Report given to EULALIA Mcdermott.
--- NOTE | 2019-11-30 19:32 | NUR ---
Nurses Notes Report received by Berry Pt alert oriented x4 able to make needs known. no acute respiratory distress noted Pt on room air. IV to the LFA SL patent and intact. Pt ambulate with steady gait voids via restroom. will continue monitor BS hyper/hypoglycemia protocol implemented. bed in lowest position call light in reach will continue to provide treatment and care during shift.
[2019-11-30 20:17] VITALS: BP 113/58
[2019-12-01] VITALS: BP 116/75
--- NOTE | 2019-12-01 06:24 | General Progress Note ---
Assessment/Plan Problem List: (1) DM (diabetes mellitus) ICD Codes: E11.9 - Type 2 diabetes mellitus without complications SNOMED: 66978740 (2) Acute exacerbation of chronic obstructive pulmonary disease (COPD) ICD Codes: J44.1 - Chronic obstructive pulmonary disease with (acute) exacerbation SNOMED: 485795980 (3) GI bleed ICD Codes: K92.2 - Gastrointestinal hemorrhage, unspecified SNOMED: 43800828 Assessment/Plan: abd pain is better stable H&H one stool ob is positive fu labs monitor H&H ppi daily' GI procedures if needed Subjective ROS Limited/Unobtainable: Yes Allergies: Coded Allergies: CEPHALEXIN (Verified Allergy, Unknown, 11/27/11) LEVOFLOXACIN (Verified Allergy, Unknown, 02/09/09) SULFA (SULFONAMIDE ANTIBIOTICS) (Verified Allergy, Unknown, 02/09/09) Subjective feeling better Objective Last 24 Hour Vital Signs Date Time Temp Pulse Resp B/P (MAP) Pulse Ox O2 Delivery O2 Flow Rate FiO2 12/01/19 00:00 97.8 72 20 116/75 (89) 97 11/30/19 21:41 Room Air 11/30/19 20:17 97.8 74 20 113/58 (76) 96 11/30/19 18:51 97.9 11/30/19 16:00 97.9 75 20 154/90 (111) 94 11/30/19 12:00 97.5 60 20 113/73 (86) 94 11/30/19 09:31 117/56 11/30/19 09:00 Room Air 11/30/19 08:00 97.3 64 20 117/56 (76) 95 Laboratory Tests 11/30/19 13:16: Stool Occult Blood Positive Height (Feet): 5 Height (Inches): 1.00 Weight (Pounds): 160 General Appearance: alert EENT: normal ENT inspection Neck: supple Cardiovascular: normal rate Respiratory/Chest: decreased breath sounds Abdomen: normal bowel sounds, non tender, soft Extremities: non-tender Dex Baeza MD Dec 01, 2019 06:24
[2019-12-01] MEDS: NovoLOG Insulin Flexpen SUBQ SCH ×2 (06:30→11:17)
[2019-12-01] MEDS: HYDROcodone/Acetamin 5/325 tab ORAL PRN (07:05)
--- NOTE | 2019-12-01 07:35 | NUR ---
NURSE NOTES: Received report from EULALIA Houser. Patient A&Ox4. On room air, no signs of distress or labored breathing. IV intact, patent, and saline locked. Reports reduced pain. Bed in lowest position with call light in reach. Will continue with plan of care.
--- NOTE | 2019-12-01 07:52 | NUR ---
Nurse Notes Report given to Ludivina ESTEBAN
[2019-12-01 08:00] VITALS: BP 95/55
[2019-12-01] MEDS: Amiodarone 200mg tab ORAL SCH (08:43)
[2019-12-01] MEDS: Aspirin EC 81mg tab ORAL SCH (08:43)
[2019-12-01] MEDS: Hyzaar 50-12.5mg tab ORAL SCH (08:43)
[2019-12-01] MEDS: metFORMIN 500mg tab ORAL SCH (08:43)
--- NOTE | 2019-12-01 09:39 | Pulmonology Progress Note ---
Assessment/Plan Assessment/Plan IMPRESSION Abdominal pain Stool OB + Cocaine use HTN PLAN She is comfortable and asymptomatic Will dc home Outpt EGD and colonoscopy per Dr Graf Subjective Interval Events: None new; stool OB+ Constitutional: Reports: no symptoms HEENT: Repors: no symptoms Respiratory: Reports: no symptoms Cardiovascular: Reports: no symptoms Gastrointestinal/Abdominal: Reports: no symptoms Allergies: Coded Allergies: CEPHALEXIN (Verified Allergy, Unknown, 11/27/11) LEVOFLOXACIN (Verified Allergy, Unknown, 02/09/09) SULFA (SULFONAMIDE ANTIBIOTICS) (Verified Allergy, Unknown, 02/09/09) Objective Last 24 Hour Vital Signs Date Time Temp Pulse Resp B/P (MAP) Pulse Ox O2 Delivery O2 Flow Rate FiO2 12/01/19 08:43 95/55 12/01/19 08:00 98.0 87 20 95/55 (68) 97 12/01/19 00:00 97.8 72 20 116/75 (89) 97 11/30/19 21:41 Room Air 11/30/19 20:17 97.8 74 20 113/58 (76) 96 11/30/19 18:51 97.9 11/30/19 16:00 97.9 75 20 154/90 (111) 94 11/30/19 12:00 97.5 60 20 113/73 (86) 94 General Appearance: no acute distress HEENT: normocephalic Respiratory/Chest: chest wall non-tender, lungs clear Cardiovascular: normal peripheral pulses Abdomen: normal bowel sounds Laboratory Tests 11/30/19 13:16: Stool Occult Blood Positive Current Medications Medications (Trade) Dose Ordered Sig/Aide Route PRN Reason Start Time Stop Time Status Last Admin Dose Admin Acetaminophen/ Hydrocodone Bitart ([place] 5/325) 1 tab Q6H PRN ORAL For Pain 11/30/19 14:15 12/07/19 14:14 12/01/19 07:05 Amiodarone HCl (Cordarone) 100 mg EVERY 12 HOURS ORAL 11/30/19 21:00 12/30/19 20:59 12/01/19 08:43 Aspirin (Ecotrin) 81 mg DAILY ORAL 11/30/19 09:00 12/30/19 08:59 12/01/19 08:43 Barium Sulfate (Readi-Cat 2) 450 ml NOW PRN ORAL Radiology Procedure 11/29/19 13:30 2/8/20 13:20 Dextrose (Dextrose 50%) 25 ml Q30M PRN IV Hypoglycemia 11/30/19 09:30 12/30/19 09:29 Dextrose (Dextrose 50%) 50 ml Q30M PRN IV Hypoglycemia 11/30/19 09:30 12/30/19 09:29 HCTZ/Losartan Potassium (Hyzaar 50-12.5mg) 2 tab DAILY ORAL 11/30/19 09:00 12/30/19 08:59 11/30/19 09:31 Insulin Aspart (NovoLOG) BEFORE MEALS AND HS SUBQ 11/30/19 11:30 12/30/19 11:29 11/30/19 17:15 Iohexol (OMNIPAQUE-300 100ml) 100 ml NOW PRN INJ Radiology Procedure 11/29/19 13:30 12/01/19 13:20 Metformin HCl (Glucophage) 500 mg TWICE A DAY ORAL 11/30/19 09:00 12/30/19 08:59 12/01/19 08:43 Ondansetron HCl (Zofran) 4 mg Q6H PRN IVP Nausea & Vomiting 11/30/19 17:00 12/30/19 16:59 11/30/19 17:07 Pantoprazole (Protonix) 40 mg DAILY@0630 ORAL 11/30/19 06:30 12/30/19 06:29 12/01/19 06:53 Pravastatin Sodium (Pravachol) 10 mg BEDTIME ORAL 11/30/19 21:00 12/30/19 20:59 11/30/19 21:16 Zolpidem Tartrate (Ambien) 5 mg BEDTIME PRN ORAL Insomnia 11/29/19 21:30 12/06/19 21:29 11/30/19 21:16 Omar Mark MD Dec 01, 2019 09:39
[2019-12-01] MEDS ORDERED: PACERONE200 MG ORAL (09:44)
[2019-12-01] MEDS ORDERED: OMEPRAZOLE40 M1 ORAL (09:44)
--- NOTE | 2019-12-01 10:02 | History & Physical ---
History and Physical History & Physicial HISTORY OF PRESENT ILLNESS: This is a 64-year-old woman, who was brought in due to abdominal pain and nausea and vomiting. She is somewhat vague about the duration, but seems to have gotten worse over the last 2-3 days. She went to [facility] Emergency room. In that location, she was evaluated for her nausea, vomiting, and her intermittent hematochezia. She states the hematochezia has been going on for months, but she has never had a colonoscopy. She had a CT scan of the abdomen and pelvis that she was told was unremarkable. She was discharged with diagnosis of gastritis with a prescription for proton-pump inhibitor. However, because of these persistent symptoms, she returned to the hospital here and at this location has been admitted. She feels better today. Her drug screen was positive for cocaine, which she smokes. PAST MEDICAL HISTORY: History of arrhythmias, history of atrial fibrillation, diabetes, hypertension, high cholesterol. FAMILY HISTORY: Noncontributory. MEDICATIONS: Amiodarone, losartan, metformin, aspirin, and pravastatin. SOCIAL HISTORY: The patient drinks alcohol occasionally. Smokes cigarettes occasionally and uses cocaine by smoking. ALLERGIES: Cephalexin, levofloxacin, and sulfa. REVIEW OF SYSTEMS: Otherwise negative. PHYSICAL EXAMINATION: GENERAL: This is a pleasant woman, seen in her room. HEENT: Normocephalic and atraumatic. Sclerae anicteric. Oropharynx clear. NECK: Supple. CHEST: Clear to auscultation. CARDIOVASCULAR: Revealed regular rate. ABDOMEN: Soft, mildly obese and nontender with good bowel sounds. There is no organomegaly. EXTREMITIES: Revealed no edema. LABORATORY DATA: Noted. ASSESSMENT: Nausea, vomiting and abdominal pain. HTN Cocaine use Insomia Plan Proton-pump inhibitor will be reasonable for now, but she can be considered for an endoscopy later today, especially if her symptoms persists. She also has hematochezia, which is in a pattern typical for hemorrhoids. Otherwise, she needs a colonoscopy as well. Omar Mark M.D. Omar Mark MD Dec 01, 2019 10:02
[2019-12-01 12:00] VITALS: BP 100/56
--- NOTE | 2019-12-01 12:19 | NUR ---
NURSE NOTES: Patient discharged home via private vehicle with son. Belongings taken with patient. ID band removed, IV discontinued. Discharge protocol followed.
--- NOTE | 2019-12-03 07:30 | History and Physical Report ---
DATE OF ADMISSION: 11/29/2019 HISTORY OF PRESENT ILLNESS: This is a 64-year-old female with a history of diabetes mellitus, hypertension, and hyperlipidemia, who presented to [facility] two days ago with abdominal pain. She underwent a complete workup including a CT that was negative. She was discharged. She then re-presented at this time to [facility] with complaints of abdominal pain. She was again seen and worked up. Her workup was negative except for findings of cocaine tox positivity in the urine. The patient reports that she has been having emesis and abdominal pain. She is chronically reliant on Ambien and also takes [place] at home. PAST MEDICAL HISTORY: Diabetes mellitus, hypertension, hyperlipidemia, and chronic insomnia. Past history is notable for AFib as well. PREVIOUS SURGICAL HISTORY: Hysterectomy. ALLERGIES: To cephalexin, Levaquin, and sulfa. MEDICATIONS: Home medications reviewed and reconciled in the chart. PHYSICAL EXAMINATION: VITAL SIGNS: Blood pressure 170/80, heart rate 84, respiratory rate 18. She is afebrile. GENERAL: Reveals an obese female. HEENT: Unremarkable. LUNGS: Clear breath sounds. ABDOMEN: Soft. NEUROLOGIC: Nonfocal. LABORATORY DATA: Laboratory testing shows normal CBC and BMP. Urine tox is negative. Toxicology is positive for cocaine. IMPRESSION: 1. Abdominal pain, suspect cocaine-related. 2. Diabetes mellitus. 3. Hypertension. DISCUSSION: We will place her in observation. We will consult GI abdomen. IV fluids. Discharge planning if well. Omar Mark M.D. DR: EDILSON JOB#: [id number] CC:
--- NOTE | 2019-12-04 07:49 | Discharge Summary ---
Discharge Summary Discharge Summary _ DATE OF ADMISSION: 11/29/2019 DATE OF DISCHARGE: 12/01/2019 DISCHARGED BY: Dr. Mark REASON FOR ADMISSION: 64 years old female with past medical history of hypertension, hyperlipidemia, diabetes mellitus, atrial fibrillation, chronic insomnia, presented to emergency department at [facility] few days ago with abdominal pain. At that time she underwent complete work-up, including CT scan of the abdomen and pelvis , which was negative. Patient subsequently was discharged. This time she presented to [facility] emergency room with complaint of abdominal pain. Patient reported emesis and abdominal pain. Patient chronically on Ambien due to insomnia and t takes Delia at home. Work-up in ER was negative , except urine toxicology screen was positive for cocaine. Patient admitted for abdominal pain , suspected cocaine related,. CONSULTANTS: GI specialist Dr. Graf [facility] COURSE: Patient admitted to medical surgical floor. Patient started on the IV fluids Abdominal ultrasound revealed no acute findings. Pain management was addressed, but use of opioids was minimized. Home medication continued. Antiemetic were on board as needed. Patient was able to tolerate diet. Stool for occult blood was positive. Hemoglobin and hematocrit remained stable. Patient started on PPI. No need for GI procedure as inpatient. Patient clinically stabilized. Patient counseled abstinence from illicit street drugs and minimize yse of opioids and sedatives. Patient was advised to follow-up with a GI specialist as outpatient for outpatient EGD and colonoscopy . FINAL DIAGNOSES: Abdominal pain -resolved Stool OB positive Cocaine use Hypertension Diabetes mellitus DISCHARGE MEDICATIONS: See Medication Reconciliation list. DISCHARGE INSTRUCTIONS: Patient was discharged home. Follow-up with a primary care provider in 1 week. Up with GI specialist for outpatient EGD and colonoscopy I have been assigned to dictate discharge summary for this account. I was not involved in the patient's management. Addis Knox NP Dec 04, 2019 07:49
== END 2019-12-01 12:20 | disposition home or self-care (01) | DRG 378 ==
LOC: EMR 13:40 → 4E 14:46 → EDBEDREQ 20:24
DX: K92.2 Gastrointestinal hemorrhage, unspecified (principal); J44.1 Chronic obstructive pulmonary disease with (acute) exacerbation; I10 Essential (primary) hypertension; F14.10 Cocaine abuse, uncomplicated; G47.00 Insomnia, unspecified; I48.91 Unspecified atrial fibrillation; Z88.1 Allergy status to other antibiotic agents; Z88.2 Allergy status to sulfonamides; E78.5 Hyperlipidemia, unspecified; Z79.82 Long term (current) use of aspirin
CPT/HCPCS: 36415; 71045; 76700; 80053; 80307; 81003; 82270; 82962; 83690; 83880; 84484; 85025; 85610; 85730; 86850; 86900; 86901; 93005; 96361; 96374; 96375; 96376; 99285; J1815; J2405; J7030